=== PATIENT | male | born 1960 | race Two or more races ===

== ENCOUNTER 2020-08-03 07:37 | Inpatient (IN) | payer SELFPAY ==
[~2020-08-03] VITALS: Ht 177.8 cm; Wt 76.2 kg
[2020-08-03] MEDS ORDERED: ETOMIDATE (2MG/ML) 20ML VIAL IV ONE ×2 (07:56→08:00)
[2020-08-03] MEDS ORDERED: SUCCINYLCHOLINE CHLORIDE 20 MG/ML 10ML VIAL IV ONE ×2 (07:56→08:00)
[2020-08-03] MEDS ORDERED: ASCORBIC ACID 500 MG TAB PO ONE (08:00)
[2020-08-03] MEDS ORDERED: methylPREDNISolone SOD SUCC 125 MG/2 ML VL IV ONE (08:00)
[2020-08-03] MEDS ORDERED: AZITHROMYCIN 500MG/ 250ML 250 ML IV ONE (08:00)
[2020-08-03] MEDS ORDERED: ENOXAPARIN SOD 100 MG/1 ML SYRINGE SC ONE (08:00)
[2020-08-03] MEDS: MIDAZOLAM DRIP 50 mg/50mL 50 ML IV SCH ×3 (08:00→16:57)
[2020-08-03] MEDS ORDERED: ZINC SULFATE 220mg CAP or TAB PO ONE ×2 (08:00→11:30)
[2020-08-03] MEDS ORDERED: fentaNYL Drip 2500mCg/250mlNS 250 ML IV SCH ×2 (08:00→09:30)
--- NOTE | 2020-08-03 08:00 | NUR ---
Respiratory note: PT WAS PLACED ON BIPAP MACHINE BUT DETERIORATED QUICKLY. PT WAS ON BIPAP MACHINE IPAP 20 EPAP 10 100% FOR ONLY 5 MINUTES THEN PATIENT WAS INTUBATED.
[2020-08-03] MEDS ORDERED: REMDESIVIR PER PHARMACY IV SCH (08:15)
[2020-08-03] MEDS ORDERED: PROPOFOL 100 ML IV ONE (08:21)
[2020-08-03] MEDS ORDERED: PROPOFOL 100 ML IV SCH (08:30)
[2020-08-03 08:33] LABS: Hematocrit 43.9 % (41.0-53.0); Hemoglobin 14.6 g/dL (13.5-17.5); Mean Corpuscular Hemoglobin 28.8 pg (28.0-32.0); Mean Corpuscular Hgb Conc. 33.3 g/dL (32.0-36.0); Mean Corpuscular Volume 86.4 fL (80.0-100.0); Platelet Count (auto) 224 10^3/uL (140-450); Red Blood Cells 5.08 10^6/uL (4.5-5.90); White Blood Cell 23.9 10^3/uL (4.4-10.8)
[2020-08-03 08:40] LABS: Basophils % (manual) 0 (0.0-2.0); Blast Cells 0; Eosinophils % (manual) 0 (0-7); Promyelocytes % 0; Reactive Lymphocytes 0
[2020-08-03 08:57] LABS: Lactic Acid w/Reflex 2.3 mmol/L (0.4-2.0)
[2020-08-03 08:58] LABS: Alanine Aminotransferase 77 U/L (16-61); Albumin 2.3 g/dL (3.4-5.0); Anion Gap 8 (5-15); Aspartate Aminotransferase 71 U/L (15-37); BUN/Creatinine Ratio 16.1; Blood Urea Nitrogen 14 mg/dL (7-18); Calcium 8.2 mg/dL (8.5-10.1); Carbon Dioxide 22 mmol/L (21-32); Chloride 103 mmol/L (98-107); GFR African American 116 mL/min; GFR Non-African American 96 mL/min; Glucose 108 mg/dL (74-106); Potassium 4.9 mmol/L (3.5-5.1); Sodium 133 mmol/L (136-145)
[2020-08-03 09:11] LABS: Alkaline Phosphatase 181 U/L (45-117); Bilirubin, Total 1.3 mg/dL (0.2-1.0); Total Protein 7.8 g/dL (6.4-8.2)
[2020-08-03 09:14] LABS: CRP High Sensitivity > 19 mg/dL (< 0.3)
[2020-08-03] MEDS ORDERED: NOREPINEPHRINE 8 MG/250ML KIT 250 ML IV ONE (10:09)
[2020-08-03] MEDS: NOREPINEPHRINE 8 MG/250ML KIT 250 ML IV SCH (10:15)
[2020-08-03] MEDS: PROPOFOL 100 ML IV SCH ×3 (10:54→20:42)
[2020-08-03] MEDS ORDERED: MORPHINE SULF INJ 2 MG/ML SYRINGE 1ML IV PRN (11:15)
[2020-08-03] MEDS ORDERED: NITROGLYCERIN 0.4 MG SL TAB SL PRN (11:15)
[2020-08-03] MEDS ORDERED: AZITHROMYCIN 500MG/D5WorNS 250ml IV ONE (11:30)
[2020-08-03] MEDS ORDERED: ENOXAPARIN SOD 40 MG/0.4 ML SYRINGE SC ONE (11:30)
[2020-08-03] MEDS ORDERED: CHOLECALCIFEROL (VITD3) 2,000 UNIT CAP PO ONE (11:30)
[2020-08-03] MEDS ORDERED: ASCORBIC ACID 1,000 MG TAB PO ONE (11:30)
[2020-08-03] MEDS ORDERED: DexAMETHasone SOD PHOS 10MG/1ML VIAL INJ IV ONE (11:30)
[2020-08-03] MEDS: cefTRIAXone 1GM/50ML D5W 50 ML IV SCH (11:49)
[2020-08-03 12:13] LABS: Band Neutrophils % (manual) 4; Lymphocytes % (manual) 7 (10.0-50.0); Metamyelocytes % 6; Monocytes % (manual) 3 (0-12); Myelocytes % 3
[2020-08-03] MEDS ORDERED: ALBUTEROL SULF HFA 90MCG INH 200DOSE IN SCH (14:00)
--- NOTE | 2020-08-03 14:03 | NUR ---
Respiratory note: ETT ADVANCED 3 CM PER CXR. ETT NOW 25 CM AT THE LIP.
[2020-08-03 18:54] VITALS: BP 104/63
[2020-08-03 19:41] LABS: Urine Bacteria NONE SEEN /hpf (None Seen); Urine Blood 2+ /uL (Negative); Urine Mucus FEW (None Seen); Urine Specific Gravity 1.016 (1.001-1.035); Urine WBC 4 /hpf (0 - 3)
[2020-08-03] MEDS: ENOXAPARIN SOD 80 MG/0.8ML SYRINGE SC SCH (21:56)
[2020-08-03] MEDS ORDERED: BUDESONIDE (INHALATION) 180 MCG IH IN SCH (22:00)
[2020-08-03] MEDS ORDERED: ENOXAPARIN SOD 40 MG/0.4 ML SYRINGE SC SCH (22:00)
[2020-08-03 22:17] VITALS: BP 117/61
[2020-08-03] MEDS: BUDESONIDE (INHALATION) 0.5 MG/2 ML NEB NEB SCH (22:17)
[2020-08-03] MEDS: ALBUTEROL SULF 2.5 MG/0.5ML(0.5%) NEB SOLN NEB SCH (22:17)
[2020-08-04] VITALS (8 sets, daily range): BP systolic 86–117; BP diastolic 47–67
[2020-08-04] MEDS: MIDAZOLAM DRIP 50 mg/50mL 50 ML IV SCH ×5 (01:44→20:59)
[2020-08-04] MEDS: NOREPINEPHRINE 8 MG/250ML KIT 250 ML IV SCH ×2 (02:30→12:10)
[2020-08-04] MEDS: PROPOFOL 100 ML IV SCH ×7 (03:01→23:21)
[2020-08-04 06:06] LABS: Basophils # (auto) 0 10 ^3/uL (0-0.2); Basophils % (auto) 0.1 % (0.0-2.0); Eosinophils # (auto) 0 10 ^3/uL (0-0.8); Hematocrit 40.7 % (41.0-53.0); Hemoglobin 13.7 g/dL (13.5-17.5); Lymphocytes # (auto) 1.2 10 ^3/uL (0.4-5.4); Lymphocytes % (auto) 5.3 % (10.0-50.0); Mean Corpuscular Hemoglobin 28.9 pg (28.0-32.0); Mean Corpuscular Hgb Conc. 33.7 g/dL (32.0-36.0); Mean Corpuscular Volume 85.6 fL (80.0-100.0); Monocytes # (auto) 0.5 10 ^3/uL (0-1.3); Monocytes % (auto) 2.3 % (0.0-12.0); Neutrophils # (auto) 20.8 10 ^3/uL (1.6-8.6); Neutrophils % (auto) 92.3 % (37.0-80.0); Nucleated Red Blood Cells % 0.2 %; Platelet Count (auto) 228 10^3/uL (140-450); Red Blood Cells 4.75 10^6/uL (4.5-5.90); Red Cell Distribution Width 13.7 % (11.8-14.3); White Blood Cell 22.6 10^3/uL (4.4-10.8)
[2020-08-04 06:12] LABS: Albumin 1.7 g/dL (3.4-5.0); Calcium 8.6 mg/dL (8.5-10.1); Potassium 4.2 mmol/L (3.5-5.1)
[2020-08-04 06:16] LABS: BUN/Creatinine Ratio 25.6; Bilirubin, Total 0.7 mg/dL (0.2-1.0); Total Protein 6.8 g/dL (6.4-8.2)
[2020-08-04] MEDS: BUDESONIDE (INHALATION) 0.5 MG/2 ML NEB NEB SCH ×2 (06:40→18:56)
[2020-08-04] MEDS: ALBUTEROL SULF 2.5 MG/0.5ML(0.5%) NEB SOLN NEB SCH ×3 (06:40→18:56)
[2020-08-04] MEDS: cefTRIAXone 1GM/50ML D5W 50 ML IV SCH (07:59)
[2020-08-04] MEDS: DexAMETHasone SOD PHOS 10MG/1ML VIAL INJ IV SCH (08:00)
[2020-08-04] MEDS: FUROSEMIDE 20 MG/2 ML VIAL IV SCH (08:00)
[2020-08-04] MEDS: ENOXAPARIN SOD 80 MG/0.8ML SYRINGE SC SCH ×2 (08:01→21:00)
[2020-08-04] MEDS: CHOLECALCIFEROL (VITD3) 2,000 UNIT CAP PO SCH (08:01)
[2020-08-04] MEDS: ZINC SULFATE 220mg CAP or TAB PO SCH (08:01)
[2020-08-04] MEDS: ASCORBIC ACID 1,000 MG TAB PO SCH (08:01)
[2020-08-04] MEDS ORDERED: AZITHROMYCIN 500MG/ 250ML 250 ML IV SCH (10:00)
[2020-08-04] MEDS ORDERED: AZITHROMYCIN 500MG/D5WorNS 250ml IV SCH (10:00)
[2020-08-04] MEDS ORDERED: AZITHROMYCIN 500MG 500 MG in SODIUM CHL 0.9% 250 ML IV SCH (10:00)
[2020-08-04] MEDS ORDERED: AZITHROMYCIN 500MG/ 250ML 250 ML IV ONE (10:05)
[2020-08-04] MEDS ORDERED: REMDESIVIR 200 MG in NS 210ml LOADING DOSE ADULT IV ONE (17:00)
[2020-08-04] MEDS: ACETAMINOPHEN 500 MG TAB PO PRN (21:56)
[2020-08-05] MEDS: NOREPINEPHRINE 8 MG/250ML KIT 250 ML IV SCH ×2 (01:30→12:57)
[2020-08-05 02:36] VITALS: BP 121/61
[2020-08-05] MEDS: MIDAZOLAM DRIP 50 mg/50mL 50 ML IV SCH ×5 (02:41→21:59)
[2020-08-05] MEDS: PROPOFOL 100 ML IV SCH ×5 (03:25→23:45)
[2020-08-05 05:55] VITALS: BP 105/51
[2020-08-05] MEDS: ALBUTEROL SULF 2.5 MG/0.5ML(0.5%) NEB SOLN NEB SCH ×3 (06:00→22:13)
[2020-08-05 07:43] LABS: Hematocrit 38.2 % (41.0-53.0); Hemoglobin 12.4 g/dL (13.5-17.5); Mean Corpuscular Hemoglobin 27.7 pg (28.0-32.0); Mean Corpuscular Hgb Conc. 32.5 g/dL (32.0-36.0); Mean Corpuscular Volume 85.3 fL (80.0-100.0); Platelet Count (auto) 233 10^3/uL (140-450); Red Blood Cells 4.48 10^6/uL (4.5-5.90); Red Cell Distribution Width 13.5 % (11.8-14.3); White Blood Cell 19.4 10^3/uL (4.4-10.8)
[2020-08-05 07:58] LABS: Band Neutrophils % (manual) 0; Basophils % (manual) 0 (0.0-2.0); Blast Cells 0; Eosinophils % (manual) 0 (0-7); Metamyelocytes % 0; Myelocytes % 0; Promyelocytes % 0; Reactive Lymphocytes 0
[2020-08-05 08:02] LABS: BUN/Creatinine Ratio 33.3; Potassium 4.1 mmol/L (3.5-5.1)
[2020-08-05] MEDS: cefTRIAXone 1GM/50ML D5W 50 ML IV SCH (09:00)
[2020-08-05 09:15] LABS: Lymphocytes % (manual) 3 (10.0-50.0); Monocytes % (manual) 1 (0-12)
[2020-08-05] MEDS: DexAMETHasone SOD PHOS 10MG/1ML VIAL INJ IV SCH (10:00)
[2020-08-05] MEDS: CHOLECALCIFEROL (VITD3) 2,000 UNIT CAP PO SCH (10:00)
[2020-08-05] MEDS: FUROSEMIDE 20 MG/2 ML VIAL IV SCH (10:00)
[2020-08-05] MEDS: ASCORBIC ACID 1,000 MG TAB PO SCH (10:00)
[2020-08-05] MEDS: AZITHROMYCIN 500MG/ 250ML 250 ML IV SCH (10:00)
[2020-08-05] MEDS: ENOXAPARIN SOD 80 MG/0.8ML SYRINGE SC SCH ×2 (10:00→22:59)
[2020-08-05] MEDS: BUDESONIDE (INHALATION) 0.5 MG/2 ML NEB NEB SCH ×2 (10:00→22:13)
[2020-08-05 10:23] VITALS: BP 97/64
[2020-08-05] MEDS: ZINC SULFATE 220mg CAP or TAB PO SCH (10:35)
--- NOTE | 2020-08-05 12:11 | NUR ---
Nutrition Assessment Notes Please refer to link for full assessment notes. Est Energy needs: 2914-7333 kcals (20-23 kcal/kgBW) Est Protein needs: 66-82 gms/day (0.8-1.0 gm/kgBW) Will continue to monitor and reassess prn. Addendum: 08/05/20 at [address] Amended: Links added.
[2020-08-05] MEDS: fentaNYL Drip 2500mCg/250mlNS 250 ML IV SCH (12:45)
[2020-08-05 14:23] VITALS: BP 120/65
[2020-08-05] MEDS: REMDESIVIR 100 MG in SODIUM CHL 0.9% 250 ML IV SCH (17:25)
[2020-08-05 18:42] VITALS: BP 114/67
[2020-08-05 22:13] VITALS: BP 98/54
[2020-08-06] VITALS (7 sets, daily range): BP systolic 81–110; BP diastolic 43–55
[2020-08-06] MEDS: MIDAZOLAM DRIP 50 mg/50mL 50 ML IV SCH ×5 (03:01→21:00)
[2020-08-06] MEDS: NOREPINEPHRINE 8 MG/250ML KIT 250 ML IV SCH ×2 (04:10→14:48)
[2020-08-06] MEDS: PROPOFOL 100 ML IV SCH ×4 (05:00→16:01)
[2020-08-06] MEDS: ALBUTEROL SULF 2.5 MG/0.5ML(0.5%) NEB SOLN NEB SCH ×3 (06:15→22:05)
[2020-08-06] MEDS: BUDESONIDE (INHALATION) 0.5 MG/2 ML NEB NEB SCH ×2 (06:15→22:05)
[2020-08-06 06:40] LABS: Basophils # (auto) 0 10 ^3/uL (0-0.2); Eosinophils # (auto) 0 10 ^3/uL (0-0.8); Hematocrit 41.9 % (41.0-53.0); Hemoglobin 13.7 g/dL (13.5-17.5); Lymphocytes # (auto) 0.4 10 ^3/uL (0.4-5.4); Lymphocytes % (auto) 2.7 % (10.0-50.0); Mean Corpuscular Hemoglobin 28.5 pg (28.0-32.0); Mean Corpuscular Hgb Conc. 32.7 g/dL (32.0-36.0); Monocytes # (auto) 0.5 10 ^3/uL (0-1.3); Monocytes % (auto) 3.7 % (0.0-12.0); Neutrophils # (auto) 12.4 10 ^3/uL (1.6-8.6); Neutrophils % (auto) 93.6 % (37.0-80.0); Platelet Count (auto) 230 10^3/uL (140-450); Red Blood Cells 4.81 10^6/uL (4.5-5.90); Red Cell Distribution Width 14.1 % (11.8-14.3); White Blood Cell 13.2 10^3/uL (4.4-10.8)
[2020-08-06 07:04] LABS: BUN/Creatinine Ratio 35.1; Calcium 8.6 mg/dL (8.5-10.1)
--- NOTE | 2020-08-06 07:15 | NUR ---
Respiratory note: VENT CHANGES PER . PLACED PT ON AC ON PREVIOUS SETTINGS, ABG TO FOLLOW.
[2020-08-06 07:16] LABS: Potassium 5.8 mmol/L (3.5-5.1)
[2020-08-06 08:25] LABS: Calcium 8.4 mg/dL (8.5-10.1)
[2020-08-06 08:29] LABS: BUN/Creatinine Ratio 45.2; Bilirubin, Total 0.5 mg/dL (0.2-1.0); Total Protein 6.7 g/dL (6.4-8.2)
[2020-08-06 08:48] LABS: Potassium 5.6 mmol/L (3.5-5.1)
[2020-08-06] MEDS: cefTRIAXone 1GM/50ML D5W 50 ML IV SCH (09:00)
[2020-08-06] MEDS ORDERED: SODIUM ZIRCONIUM CYCL 10 GM PAK GT ONE (09:15)
[2020-08-06] MEDS ORDERED: SODIUM BICARBONATE 8.4% INJ 50ML SYRINGE IV ONE (09:15)
[2020-08-06] MEDS ORDERED: InsuLIN REG 1unit/0.01ml Soln (100units/ml) IV ONE (09:15)
[2020-08-06] MEDS ORDERED: FUROSEMIDE 20 MG/2 ML VIAL IV ONE (09:15)
[2020-08-06] MEDS ORDERED: DEXTROSE (50%) 50ML SYRG IV ONE (09:15)
[2020-08-06] MEDS: FUROSEMIDE 20 MG/2 ML VIAL IV SCH (10:00)
[2020-08-06] MEDS: CHOLECALCIFEROL (VITD3) 2,000 UNIT CAP PO SCH (10:00)
[2020-08-06] MEDS: ENOXAPARIN SOD 80 MG/0.8ML SYRINGE SC SCH ×2 (10:00→22:00)
[2020-08-06] MEDS: ASCORBIC ACID 1,000 MG TAB PO SCH (10:00)
[2020-08-06] MEDS: ZINC SULFATE 220mg CAP or TAB PO SCH (10:00)
[2020-08-06] MEDS: AZITHROMYCIN 500MG/ 250ML 250 ML IV SCH (10:00)
[2020-08-06] MEDS: DexAMETHasone SOD PHOS 10MG/1ML VIAL INJ IV SCH (10:00)
--- NOTE | 2020-08-06 10:15 | NUR ---
Respiratory note: RR CHANGED FROM [address] HARDIN.
[2020-08-06] MEDS: fentaNYL Drip 2500mCg/250mlNS 250 ML IV SCH (12:45)
[2020-08-06 13:22] LABS: BUN/Creatinine Ratio 33.3; Calcium 7.9 mg/dL (8.5-10.1); Potassium 4.1 mmol/L (3.5-5.1)
[2020-08-06] MEDS: REMDESIVIR 100 MG in SODIUM CHL 0.9% 250 ML IV SCH (17:29)
[2020-08-07] VITALS (29 sets, daily range): BP systolic 84–149; BP diastolic 40–75
[2020-08-07] MEDS: PROPOFOL 100 ML IV SCH ×6 (00:15→23:30)
[2020-08-07] MEDS: MIDAZOLAM DRIP 50 mg/50mL 50 ML IV SCH ×5 (01:00→22:32)
[2020-08-07] MEDS: BUDESONIDE (INHALATION) 0.5 MG/2 ML NEB NEB SCH ×2 (06:00→22:16)
[2020-08-07] MEDS: ALBUTEROL SULF 2.5 MG/0.5ML(0.5%) NEB SOLN NEB SCH ×3 (06:00→22:16)
[2020-08-07 06:02] LABS: Basophils # (auto) 0 10 ^3/uL (0-0.2); Basophils % (auto) 0.1 % (0.0-2.0); Eosinophils # (auto) 0 10 ^3/uL (0-0.8); Eosinophils % (auto) 0.1 % (0.0-7.0); Hematocrit 39.3 % (41.0-53.0); Hemoglobin 13.4 g/dL (13.5-17.5); Lymphocytes # (auto) 0.8 10 ^3/uL (0.4-5.4); Lymphocytes % (auto) 5.6 % (10.0-50.0); Mean Corpuscular Hemoglobin 28.8 pg (28.0-32.0); Mean Corpuscular Hgb Conc. 34.1 g/dL (32.0-36.0); Mean Corpuscular Volume 84.6 fL (80.0-100.0); Monocytes # (auto) 0.7 10 ^3/uL (0-1.3); Monocytes % (auto) 5.1 % (0.0-12.0); Neutrophils % (auto) 89.1 % (37.0-80.0); Nucleated Red Blood Cells % 0.1 %; Platelet Count (auto) 228 10^3/uL (140-450); Red Blood Cells 4.64 10^6/uL (4.5-5.90); White Blood Cell 13.5 10^3/uL (4.4-10.8)
[2020-08-07] MEDS: NOREPINEPHRINE 8 MG/250ML KIT 250 ML IV SCH ×3 (06:02→16:33)
[2020-08-07 06:15] LABS: Potassium 4.1 mmol/L (3.5-5.1)
[2020-08-07 06:55] LABS: Albumin 2.1 g/dL (3.4-5.0); BUN/Creatinine Ratio 42.9; Bilirubin, Total 0.8 mg/dL (0.2-1.0); Calcium 8.2 mg/dL (8.5-10.1); Total Protein 6.5 g/dL (6.4-8.2)
--- NOTE | 2020-08-07 07:15 | NUR ---
Respiratory note: VENT CHANGE PER POST AM ABG. RR FROM 18 TO 20. REPEAT ABG TO FOLLOW.
[2020-08-07] MEDS: ACETAMINOPHEN 500 MG TAB PO PRN (07:18)
[2020-08-07] MEDS ORDERED: ACETAMINOPHEN 650 MG RECT SUPP PR ONE (08:00)
[2020-08-07] MEDS: AZITHROMYCIN 500MG/ 250ML 250 ML IV SCH (09:56)
[2020-08-07] MEDS: DexAMETHasone SOD PHOS 10MG/1ML VIAL INJ IV SCH (09:56)
[2020-08-07] MEDS: cefTRIAXone 1GM/50ML D5W 50 ML IV SCH (09:56)
[2020-08-07] MEDS: ENOXAPARIN SOD 80 MG/0.8ML SYRINGE SC SCH ×2 (09:56→22:05)
[2020-08-07] MEDS: ASCORBIC ACID 1,000 MG TAB PO SCH (09:56)
[2020-08-07] MEDS: CHOLECALCIFEROL (VITD3) 2,000 UNIT CAP PO SCH (09:56)
[2020-08-07] MEDS: fentaNYL Drip 2500mCg/250mlNS 250 ML IV SCH ×2 (09:56→16:33)
[2020-08-07] MEDS: FUROSEMIDE 20 MG/2 ML VIAL IV SCH (09:56)
[2020-08-07] MEDS: ZINC SULFATE 220mg CAP or TAB PO SCH (09:56)
--- NOTE | 2020-08-07 10:32 | NUR ---
Nutrition Followup Note Wt 82.2kg Pt is covid positive and pt is intubated and sedated in the ER. Propofol is running at 12.336 ml/hr providing 326 kcal from lipids. Pt is NPO with no alternate nutrition ordered for pt. Est Energy needs: 1662-5163 kcals (20-23 kcal/kgBW) Est Protein needs: 66-82 gms/day (0.8-1.0 gm/kgBW) Will continue to monitor and reassess prn. Labs: BUN 27H, Creat 0.63L, GLUC 111H, Alb 2.1L, Ca 8.2L BM: Pt with no BM noted per Rn note Skin: Pt with no BS noted per day care worker note. PES: 1) Increased nutrient needs r/t pt with no PO intake aeb pt in intubated, NPO 2) Altered nutrition related lab values r/t current medical condition aeb eleb RFT, hyperglycemia, hypocalcemia, hypoalbuminemia Comments Will continue to monitor PO status, skin status, pertinent labs and weight trends. Will f/u in 2-3 days 1) Continue to closely monitor pt NPO status 2) If pt is to remain NPO for the next 48 hours, consider supplemental nutrition support. If GI is accessible, consider Jevity 1.2 @ 70 ml/hr goal rate 3) Gradually advance pt to Regular diet when medically feasible, as tolerated and per MD approval 4) If albumin continues trending down with improved RFT, consider Prostat 1 pkt BID 5) Continue current plan of care Expected Outcomes/Goals: Pt to receive nutrition support in the next 48 hours Pt diet to advance Pt labs to improve
--- NOTE | 2020-08-07 13:50 | NUR ---
Respiratory note: TITRATED FIO2 TO 75%
--- NOTE | 2020-08-07 15:33 | NUR ---
REPORT REPORT RECEIVED FROM COMPUTER MECHANICMAR. PT INTUBATED AND SEDATED. ALSO COVID +.
--- NOTE | 2020-08-07 16:04 | NUR ---
PT TEACHING PT UNABLE TO BENEFIT FROM PT TEACHING AT THIS TIME DUE TO HIS CONDITION. Addendum: 08/07/20 at 2025 by Laine Spring RN Amended: Links added.
--- NOTE | 2020-08-07 16:04 | NUR ---
Admit to ICU from ER on vent TUAN BONILLA admitted to ICU via gurney on monitoring engineer, intubated and being bagged by Respiratory Therapist. Patient transferred to bed, connected to mechanical ventilator by therapist, CRISTINA at bedside. Patient connected to ICU monitoring, weighed by agustín, oriented to Laine Spring, primary RN, unit, ventilator and sedation. NOTE: PT SEDATED AND INTUBATED WITH VENT SETTINGS OF: 8 FR ETT/24 AT THE LIP, PC SETTING, RATE 20, PRESSURE 24, PEEPOF 8 , 75% FIO2. LUNGS CLEAR AND DIMINISHED THROUGHOUT. BP OF 109/59 ON LEVOPHED AT 1 MCG. PALPABLE PULSES TO ALL EXTREMITIES. NO EDEMA NOTED. ABD SOFT WITH FEW BOWEL SOUNDS NOTED. LEGGETT CATHETER DRAINING CLEAR CLEAR YELLOW URINE. SKIN INTACT. SMALL SCAR NOTED TO LEFT CHEST AND HYPOPIGMENTATION NOTED TO BLE AND FEET AND HIS PENIS. PT WITH MIDLINE TO BUE AND BILATERAL AC SALINE LOCKS. CONTINUE TO MONITOR.
--- NOTE | 2020-08-07 16:05 | NUR ---
Respiratory note: TRANSPORTED PATIENT TO ROOM 111 ON TRANSPORT VENT WITHOUT ANY INCIDENT. PLACED PATIENT BACK ON VENT#6 ON PREVIOUS SETTINGS.
--- NOTE | 2020-08-07 16:16 | NUR ---
WOUND CARE NOTE: Wound care in to see patient for skin assessment due to low Kelvin score of 12 and intubation status,putting patient to high risk for skin breakdown. Patient is 60 years old male with admitting diagnosis of Acute Hypoxic Resp Failure. Patient is resting in ICU low air loss bed in . 111. Patient is intubated, sedated and mechanically ventilated. Patient appears to be in no pain using Carlos Alves Faces Pain Scale. Skin assessment done with the assistance of patient's nurse, VIET Jang. No wound noted other than patches of hypopigmented pink skin to bilateral foot, ankle and distal penile shaft. No pressure injury noted. Applied preventative Opti foam sacral dressing to patient's upper sacrum. RECOMMENDATION: Nursing to continue with BID/PRN cleaning and application of Barrier cream to sacral buttocks as preventative, frequent turning and repositioning schedule as condition permits, redistribute pressure points with pillows, elevate heels on pillows, continue monitoring by wound care while patient is intubated and Kelvin score is <18. Addendum: 08/07/20 at 1628 by Renetta Burton RN Amended: Links added.
[2020-08-07] MEDS: REMDESIVIR 100 MG in SODIUM CHL 0.9% 250 ML IV SCH (17:57)
--- NOTE | 2020-08-07 18:15 | NUR ---
HEART RATE DOWN TO 39 BRIEFLY AND THEN STAYING IN THE UPPER 40'S. DECREASED DIPRIVAN BY 5 MCG TO 20 MCG WITH HEART RTE THEN UP INTO THE 60'S AFTER ABOUT 5 MINUTES. CONTINUE TO MONITOR.
--- NOTE | 2020-08-07 18:30 | NUR ---
Respiratory note: RECEIVED PT ON VENT V6. VENT CHECK DONE FROM PTS ROOM DOOR DUE TO COVID PRECAUTIONS. VENT CONNECTED TO RED OUTLET AND O2 SOURCE ALARMS ARE SET AND AUDIBLE AMBU BAG AND MASK W/ PEEP VALVE AT BEDSIDE. PTS CURRENT TEMP READS 97.3F. NO VENT CHANGES MADE WILL CONTINUE TO MONITOR.
--- NOTE | 2020-08-07 19:00 | NUR ---
Report received from VIET Jang. Patient intubated with ETT 8.0 at 24 CM L/L to vent. Vent settings: AC 20 Pressure Control 24 FiO2 75% PEEP 8. IVF: Propofol drip at 20 mcg/kg/min; Versed drip 8 mg/hr; Fentanyl drip 100 mcg/hr; and, Levophed drip 1 mcg/min. Will continue with POC; and, will continue to monitor VS, focus on BP, RASS -3, and clinical status.
--- NOTE | 2020-08-07 20:30 | NUR ---
Propofol drip changed to new bottle and infusion rate resumed at 20 mcg/kg/min.
--- NOTE | 2020-08-07 22:06 | NUR ---
Patient medicated with Lovenox 80 mg SQ.
--- NOTE | 2020-08-07 22:16 | NUR ---
Respiratory note: AT BEDSIDE BEDSIDE IN FULL PPE DUE TO COVID PRECAUTIONS. AT BEDSIDE FOR ROUTINE VENT CHECK. BS ARE ARE COURSE ATTEMPTED TO SXD VIA ETT, UNABLE TO PASS CATHETER IN-LINE, UNABLE TO PLACE BITE BLOCK DUE TO BENDING AND NOT ENOUGH CLEARANCE TO PASS SIZE 8 OPA. HOLISTER CHANGED OUT AT THIS TIME TO A HOLISTER WITH INTEGRATED BITE BLOCK. RN HERB AWARE OF CHANGE. PTS CURRENT TEMP READS 97.7F. NO CHANGES MADE WILL CONTINUE TO MONITOR.
--- NOTE | 2020-08-07 22:30 | NUR ---
Versed drip changed to new bag and resumed infusion rate at 8 mg/hr.
--- NOTE | 2020-08-07 22:39 | NUR ---
Patient biting on ETT. RT attempted to place bite block and patient resisting bite block insertion. Versed drip increase to 12 mg/hr.
--- NOTE | 2020-08-07 23:45 | NUR ---
BP 85/40 A-Line BP 92/56. Levophed drip increase to 4 mcg/min.
[2020-08-08] VITALS (102 sets, daily range): BP systolic 82–140; BP diastolic 42–92
--- NOTE | 2020-08-08 02:23 | NUR ---
Respiratory note: VENT CHECK DONE FROM PTS ROOM DOOR DUE TO COVID PRECAUTIONS. AT BEDSIDE FOR ROUTINE VENT CHECK, PTS CURRENT TEMP READS 98.1F. NO CHANGES MADE WILL CONTINUE TO MONITOR.
--- NOTE | 2020-08-08 02:45 | NUR ---
RT decrease FiO2 to 65%.
--- NOTE | 2020-08-08 02:53 | NUR ---
FIO2 TITRATED TO 65% VIA VENTILATOR. PT TOLERATING CHANGE WELL. RN HERB COMMUNICATED ON O2 CHANGE.
--- NOTE | 2020-08-08 03:25 | NUR ---
Versed drip changed to new bag and infusion resumed at 12 mg/hr.
--- NOTE | 2020-08-08 04:00 | NUR ---
Regulator Assembler on unit. Credit Reporter collected am labs from [facility]. Specimens given to Regulator Assembler and specimens sent to lab.
[2020-08-08 04:33] LABS: Basophils # (auto) 0.1 10 ^3/uL (0-0.2); Basophils % (auto) 0.5 % (0.0-2.0); Eosinophils # (auto) 0 10 ^3/uL (0-0.8); Eosinophils % (auto) 0.1 % (0.0-7.0); Hematocrit 37.3 % (41.0-53.0); Hemoglobin 12.5 g/dL (13.5-17.5); Lymphocytes # (auto) 0.9 10 ^3/uL (0.4-5.4); Lymphocytes % (auto) 5.1 % (10.0-50.0); Mean Corpuscular Hgb Conc. 33.4 g/dL (32.0-36.0); Mean Corpuscular Volume 83.7 fL (80.0-100.0); Monocytes # (auto) 0.8 10 ^3/uL (0-1.3); Monocytes % (auto) 4.3 % (0.0-12.0); Neutrophils # (auto) 16.6 10 ^3/uL (1.6-8.6); Platelet Count (auto) 261 10^3/uL (140-450); Red Blood Cells 4.46 10^6/uL (4.5-5.90); Red Cell Distribution Width 13.8 % (11.8-14.3); White Blood Cell 18.4 10^3/uL (4.4-10.8)
[2020-08-08 04:45] LABS: Albumin 1.9 g/dL (3.4-5.0); Calcium 7.7 mg/dL (8.5-10.1); Potassium 3.7 mmol/L (3.5-5.1)
[2020-08-08 04:50] LABS: BUN/Creatinine Ratio 51.8
[2020-08-08] MEDS: PROPOFOL 100 ML IV SCH ×2 (06:05→22:00)
--- NOTE | 2020-08-08 06:05 | NUR ---
Propofol drip changed to new bottle and infusion resumed at 20mcg/kg/min.
[2020-08-08] MEDS: ALBUTEROL SULF 2.5 MG/0.5ML(0.5%) NEB SOLN NEB SCH ×3 (06:22→22:16)
[2020-08-08] MEDS: BUDESONIDE (INHALATION) 0.5 MG/2 ML NEB NEB SCH ×2 (06:22→22:16)
--- NOTE | 2020-08-08 06:22 | NUR ---
Respiratory note: RECEIVED PT FROM KNOTTING MACHINE OPERATOR PORTABLE ON VENT V-6 PLUGGED INTO RED OUTLET. ALL VENT ALARMS ARE AUDIBLE, AND FUNCTIONING. AMBU BAG/MASK WITH PEEP VALVE IS AT BEDSIDE CONNECTED TO AN O2 SOURCE. ETT IS 8.0 @ THE 26 LIP LINE SECURED WITH A ISAURA. MOVED ETT FROM LEFT, TO RIGHT WITH NO ORAL/SKIN BREAK DOWN NOTED. BS ARE SLIGHTLY CLEAR/DIMINISHED BILATERALLY. SX FOR A SCANT AMOUNT OF THICK, PINK TINGED SECRETIONS. GAG REFLEX NOTED. MEDNEB TX GIVEN INLINE, WITH NO ADVERSE EFFECTS NOTED. PT SKIN IS WARM/DRY TO THE TOUCH. PT IS UNRESPONSIVE TO VERBAL STIMULI. NO NEW VENT CHANGES ORDERED AT THIS TIME. WILL CONTINUE TO MONITOR PT. CHARTING COMPLETE FROM OUTSIDE OF PT ROOM PER COVID-19 PRECAUTIONS/PROTOCOL.
[2020-08-08] MEDS: fentaNYL Drip 2500mCg/250mlNS 250 ML IV SCH (08:00)
[2020-08-08] MEDS: NOREPINEPHRINE 8 MG/250ML KIT 250 ML IV SCH (08:00)
[2020-08-08] MEDS: cefTRIAXone 1GM/50ML D5W 50 ML IV SCH (09:00)
[2020-08-08] MEDS: ENOXAPARIN SOD 80 MG/0.8ML SYRINGE SC SCH ×2 (10:00→22:37)
[2020-08-08] MEDS: FUROSEMIDE 20 MG/2 ML VIAL IV SCH (10:00)
[2020-08-08] MEDS: ZINC SULFATE 220mg CAP or TAB PO SCH (10:00)
[2020-08-08] MEDS: AZITHROMYCIN 500MG/ 250ML 250 ML IV SCH (10:00)
[2020-08-08] MEDS: CHOLECALCIFEROL (VITD3) 2,000 UNIT CAP PO SCH (10:00)
[2020-08-08] MEDS: DexAMETHasone SOD PHOS 10MG/1ML VIAL INJ IV SCH (10:00)
[2020-08-08] MEDS: ASCORBIC ACID 1,000 MG TAB PO SCH (10:00)
--- NOTE | 2020-08-08 12:05 | NUR ---
Respiratory note: PT FIO2 TITRATED TO 55%. PT TOLERATED CHANGE WELL. RN AWARE. NO OTHER VENT CHANGES ORDERED/MADE AT THIS TIME. WILL CONTINUE TO MONITOR PT. CHARTING COMPLETE FROM OUTSIDE OF PT ROOM PER COVID-19 PRECAUTIONS/PROTOCOL/
[2020-08-08] MEDS: REMDESIVIR 100 MG in SODIUM CHL 0.9% 250 ML IV SCH (17:12)
[2020-08-08] MEDS: MIDAZOLAM DRIP 50 mg/50mL 50 ML IV SCH (20:00)
[2020-08-09] VITALS (99 sets, daily range): BP systolic 85–208; BP diastolic 47–85
[2020-08-09] MEDS: ALBUTEROL SULF 2.5 MG/0.5ML(0.5%) NEB SOLN NEB SCH ×4 (01:41→22:33)
[2020-08-09] MEDS ORDERED: ALBUTEROL SULF 2.5 MG/0.5ML(0.5%) NEB SOLN NEB PRN (01:45)
[2020-08-09] MEDS: MIDAZOLAM DRIP 50 mg/50mL 50 ML IV SCH ×3 (03:33→15:36)
[2020-08-09 04:55] LABS: Basophils # (auto) 0.1 10 ^3/uL (0-0.2); Basophils % (auto) 0.3 % (0.0-2.0); Eosinophils # (auto) 0 10 ^3/uL (0-0.8); Eosinophils % (auto) 0.1 % (0.0-7.0); Hematocrit 38.4 % (41.0-53.0); Hemoglobin 12.9 g/dL (13.5-17.5); Lymphocytes % (auto) 4.4 % (10.0-50.0); Mean Corpuscular Hemoglobin 28.4 pg (28.0-32.0); Mean Corpuscular Hgb Conc. 33.7 g/dL (32.0-36.0); Mean Corpuscular Volume 84.4 fL (80.0-100.0); Monocytes # (auto) 0.9 10 ^3/uL (0-1.3); Monocytes % (auto) 3.8 % (0.0-12.0); Neutrophils # (auto) 20.3 10 ^3/uL (1.6-8.6); Neutrophils % (auto) 91.4 % (37.0-80.0); Nucleated Red Blood Cells % 0.1 %; Platelet Count (auto) 269 10^3/uL (140-450); Red Blood Cells 4.55 10^6/uL (4.5-5.90); Red Cell Distribution Width 13.6 % (11.8-14.3); White Blood Cell 22.3 10^3/uL (4.4-10.8)
[2020-08-09] MEDS: PROPOFOL 100 ML IV SCH ×2 (05:01→06:35)
[2020-08-09 05:13] LABS: BUN/Creatinine Ratio 58.5; Calcium 7.9 mg/dL (8.5-10.1); Potassium 4.1 mmol/L (3.5-5.1)
[2020-08-09] MEDS: BUDESONIDE (INHALATION) 0.5 MG/2 ML NEB NEB SCH ×2 (06:35→22:33)
[2020-08-09] MEDS: NOREPINEPHRINE 8 MG/250ML KIT 250 ML IV SCH (06:42)
[2020-08-09] MEDS: cefTRIAXone 1GM/50ML D5W 50 ML IV SCH (09:00)
[2020-08-09] MEDS: ASCORBIC ACID 1,000 MG TAB PO SCH (10:00)
[2020-08-09] MEDS: FUROSEMIDE 20 MG/2 ML VIAL IV SCH (10:00)
[2020-08-09] MEDS: AZITHROMYCIN 500MG/ 250ML 250 ML IV SCH (10:00)
[2020-08-09] MEDS: ZINC SULFATE 220mg CAP or TAB PO SCH (10:00)
[2020-08-09] MEDS: DexAMETHasone SOD PHOS 10MG/1ML VIAL INJ IV SCH (10:00)
[2020-08-09] MEDS: fentaNYL Drip 2500mCg/250mlNS 250 ML IV SCH (10:00)
[2020-08-09] MEDS: CHOLECALCIFEROL (VITD3) 2,000 UNIT CAP PO SCH (10:00)
[2020-08-09] MEDS: ENOXAPARIN SOD 80 MG/0.8ML SYRINGE SC SCH ×2 (10:09→21:56)
--- NOTE | 2020-08-09 10:45 | NUR ---
PER DR. MURRAY DECREASED VENT: RR 16 AND FIO2 70%. RN MADE AWARE
--- NOTE | 2020-08-09 15:11 | NUR ---
Nutrition Followup Note Wt 76.5kg Pt is covid positive and pt is intubated and sedated in the ER. Propofol is running at 12.336 ml/hr providing 326 kcal from lipids. Pt continues to be NPO with no alternate nutrition ordered for pt. Consider starting TF when medically feasible or TPN if GI is not accessible Est Energy needs: 6087-3693 kcals (20-23 kcal/kgBW) Est Protein needs: 66-82 gms/day (0.8-1.0 gm/kgBW) Will continue to monitor and reassess prn. Labs: BUN 31H, Creat 0.53L, Alb 1.9L, Na 134L, Ca 7.9L BM: Pt with no BM noted per Rn note Skin: Pt with no BS noted per day care supervisor note. PES: 1) Increased nutrient needs r/t pt with no PO intake aeb pt in intubated, NPO 2) Altered nutrition related lab values r/t current medical condition aeb eleb RFT, hyperglycemia, hypocalcemia, hypoalbuminemia Comments Will continue to monitor PO status, skin status, pertinent labs and weight trends. Will f/u in 2-3 days 1) Continue to closely monitor pt NPO status 2) If pt is to remain NPO for the next 48 hours, consider supplemental nutrition support. If GI is accessible, consider Jevity 1.2 @ 70 ml/hr goal rate 3) Gradually advance pt to Regular diet when medically feasible, as tolerated and per MD approval 4) If albumin continues trending down with improved RFT, consider Prostat 1 pkt BID 5) Continue current plan of care Expected Outcomes/Goals: Pt to receive nutrition support in the next 48 hours Pt diet to advance Pt labs to improve
[2020-08-10] VITALS (99 sets, daily range): BP systolic 97–148; BP diastolic 49–77
[2020-08-10 04:07] LABS: Basophils # (auto) 0 10 ^3/uL (0-0.2); Basophils % (auto) 0.2 % (0.0-2.0); Eosinophils # (auto) 0.1 10 ^3/uL (0-0.8); Eosinophils % (auto) 0.6 % (0.0-7.0); Hematocrit 38.3 % (41.0-53.0); Hemoglobin 12.8 g/dL (13.5-17.5); Lymphocytes # (auto) 0.7 10 ^3/uL (0.4-5.4); Mean Corpuscular Hemoglobin 28.4 pg (28.0-32.0); Mean Corpuscular Hgb Conc. 33.5 g/dL (32.0-36.0); Mean Corpuscular Volume 84.7 fL (80.0-100.0); Monocytes # (auto) 0.6 10 ^3/uL (0-1.3); Monocytes % (auto) 5.1 % (0.0-12.0); Neutrophils # (auto) 10.5 10 ^3/uL (1.6-8.6); Neutrophils % (auto) 88.1 % (37.0-80.0); Platelet Count (auto) 289 10^3/uL (140-450); Red Blood Cells 4.52 10^6/uL (4.5-5.90); Red Cell Distribution Width 13.7 % (11.8-14.3); White Blood Cell 11.9 10^3/uL (4.4-10.8)
[2020-08-10 04:26] LABS: Potassium 3.7 mmol/L (3.5-5.1)
[2020-08-10 04:32] LABS: BUN/Creatinine Ratio 61.2; Calcium 8.1 mg/dL (8.5-10.1)
[2020-08-10] MEDS: ALBUTEROL SULF 2.5 MG/0.5ML(0.5%) NEB SOLN NEB SCH ×3 (06:00→22:54)
[2020-08-10] MEDS: BUDESONIDE (INHALATION) 0.5 MG/2 ML NEB NEB SCH ×2 (07:19→22:54)
--- NOTE | 2020-08-10 08:00 | NUR ---
AM ASSESSMENT DONE REMAINS INTUBATED SEDATED ON , VERSED AT 12 MG/HR, PROPOFOL AT 15 MCG/KG/MIN AND FENTANYL AT 175 MCG/HR. WITH THIS SEDATION PT IS WELL SEDATED AND IS TOLERATING THE VENTILATOR. PT IS + FOR COVID 19 AND ALSO HAS A PNEUMOMEDIASTINUM PER CXR DONE 08/05/2020 , PT HAS QUITE A BIT OF CREPITUS AROUND ANTERIOR CHEST AND AROUND NECK. DR. MURRAY AWARE (PER REPORT RECEIVED FROM GENERAL INTERNIST RN). GOOD COUGH AND GAG REFLUX, PUPILS WITH A SLUGGISH REACTION TO LIGHT.LS WITH RH AND CLEAR UP AFTER SUCTIONING EXCEPT FOR OSITO LOBE, IT PERSIST WITH RHONCHI. SR, NO ECTOPY, PT ON 4 KARINA/MIN OF LEVOPHED FOR BP SUPPORT. SKIN REMAIN INTACT. FC DRAINING CLEAR YELLOW URINE. FC WITH SECUREMENT DEVICE IN PLACE. ORAL CARE RENDERED PER VAP PROTOCOL AND REPOSITIONED FOR COMFORT WITH VIET MILLER'S ASSISTANCE.
[2020-08-10] MEDS: ZINC SULFATE 220mg CAP or TAB PO SCH (09:47)
[2020-08-10] MEDS: ENOXAPARIN SOD 80 MG/0.8ML SYRINGE SC SCH ×2 (09:47→22:26)
[2020-08-10] MEDS: cefTRIAXone 1GM/50ML D5W 50 ML IV SCH (09:47)
[2020-08-10] MEDS: CHOLECALCIFEROL (VITD3) 2,000 UNIT CAP PO SCH (09:48)
[2020-08-10] MEDS: ASCORBIC ACID 1,000 MG TAB PO SCH (09:48)
[2020-08-10] MEDS: FUROSEMIDE 20 MG/2 ML VIAL IV SCH (09:49)
[2020-08-10] MEDS: DexAMETHasone SOD PHOS 10MG/1ML VIAL INJ IV SCH (09:50)
[2020-08-10] MEDS: PROPOFOL 100 ML IV SCH ×2 (09:52→17:40)
[2020-08-10] MEDS: AZITHROMYCIN 500MG/ 250ML 250 ML IV SCH (11:04)
--- NOTE | 2020-08-10 11:45 | NUR ---
DR. LEXY ALBA ON PT. UPDATED HER ON PT'S CONDITION. NEW ORDERS RECEIVED HOWEVER SHE HAD ALREADY GIVEN THOSE ORDERS TO RT WELCH TO IMPLEMENT. THOSE ORDERS WERE FOR VENTILATOR CHANGES AND FOLLOW UP, ABG.
[2020-08-10] MEDS ORDERED: Jevity 1.2 Cal/Fiber 1 Liter GT SCH (14:15)
--- NOTE | 2020-08-10 14:27 | NUR ---
Respiratory note: FINAL VENT CHECK DONE. TITRATED FIO2 TO 50%. PT TOLERATING WELL. PT RECEIVED MN TX INLINE. NO ADVERSE REACTION NOTED. WILL ENDORSE PT'S CARE TO NOC RT.
[2020-08-10] MEDS: MIDAZOLAM DRIP 50 mg/50mL 50 ML IV SCH (18:36)
[2020-08-10] MEDS: fentaNYL Drip 2500mCg/250mlNS 250 ML IV SCH (23:44)
[2020-08-11] VITALS (101 sets, daily range): BP systolic 91–139; BP diastolic 45–78
[2020-08-11 04:44] LABS: Basophils # (auto) 0.1 10 ^3/uL (0-0.2); Basophils % (auto) 0.6 % (0.0-2.0); Eosinophils # (auto) 0.1 10 ^3/uL (0-0.8); Eosinophils % (auto) 0.6 % (0.0-7.0); Hematocrit 37.8 % (41.0-53.0); Hemoglobin 12.7 g/dL (13.5-17.5); Lymphocytes # (auto) 0.7 10 ^3/uL (0.4-5.4); Lymphocytes % (auto) 6.2 % (10.0-50.0); Mean Corpuscular Hemoglobin 28.4 pg (28.0-32.0); Mean Corpuscular Hgb Conc. 33.6 g/dL (32.0-36.0); Mean Corpuscular Volume 84.3 fL (80.0-100.0); Monocytes # (auto) 0.7 10 ^3/uL (0-1.3); Monocytes % (auto) 6.6 % (0.0-12.0); Neutrophils # (auto) 9.4 10 ^3/uL (1.6-8.6); Nucleated Red Blood Cells % 0.2 %; Platelet Count (auto) 268 10^3/uL (140-450); Red Blood Cells 4.49 10^6/uL (4.5-5.90); Red Cell Distribution Width 13.8 % (11.8-14.3); White Blood Cell 10.9 10^3/uL (4.4-10.8)
[2020-08-11 05:03] LABS: Potassium 4.1 mmol/L (3.5-5.1)
[2020-08-11 05:13] LABS: BUN/Creatinine Ratio 49.1; Calcium 8.1 mg/dL (8.5-10.1)
[2020-08-11] MEDS: PROPOFOL 100 ML IV SCH (05:46)
[2020-08-11] MEDS: ALBUTEROL SULF 2.5 MG/0.5ML(0.5%) NEB SOLN NEB SCH ×3 (06:45→21:47)
--- NOTE | 2020-08-11 08:00 | NUR ---
PT ASSESSMENT COMPLETED. REMAINS SEDATED, INTUBATED, SEDATION IS SLOWLY BEING TITRATED OFF. PT ATTEMPTS TO FOLLOW COMMANDS. SR, NO ECTOPY, LS WITH RH IN ALL PULIDO. MINIMAL THICK SECRETIONS SUCTIONED THROUGH ETT. ORAL CARE PROVIDED PER VAP PROTOCOL. SKIN REMAINS INTACT. FC DRAINING CLEAR YELLOW URINE.
[2020-08-11] MEDS: MIDAZOLAM DRIP 50 mg/50mL 50 ML IV SCH ×3 (09:17→16:51)
[2020-08-11] MEDS: cefTRIAXone 1GM/50ML D5W 50 ML IV SCH (09:18)
[2020-08-11] MEDS: AZITHROMYCIN 500MG/ 250ML 250 ML IV SCH (10:00)
[2020-08-11] MEDS: ASCORBIC ACID 1,000 MG TAB PO SCH (10:00)
[2020-08-11] MEDS: BUDESONIDE (INHALATION) 0.5 MG/2 ML NEB NEB SCH ×2 (10:00→21:47)
[2020-08-11] MEDS: ZINC SULFATE 220mg CAP or TAB PO SCH (10:00)
[2020-08-11] MEDS: CHOLECALCIFEROL (VITD3) 2,000 UNIT CAP PO SCH (10:00)
--- NOTE | 2020-08-11 11:32 | NUR ---
Nutrition Followup Note Wt 76.5kg Pt is covid positive and pt is intubated and sedated with propofl @ 7.402 ml./hr provding 195 kcals from fats. Pt continues to be NPO Est Energy needs: 5475-3266 kcals (20-23 kcal/kgBW), Est Protein needs: 66-82 gms/day (0.8-1.0 gm/kgBW). Will continue to monitor and reassess prn. Labs: BUN 26 H CA 8.1 L, ALB 1.9 L, GLU 113 H BM: Pt with no BM noted per Rn note Skin: BS 13 mod risk refer to skin care notes for details PES: 1) Increased nutrient needs r/t pt with no PO intake aeb pt in intubated, NPO 2) Altered nutrition related lab values r/t current medical condition aeb eleb RFT, hyperglycemia, hypocalcemia, hypoalbuminemia Comments Will continue to monitor NPO status, skin status, pertinent labs and weight trends. Will f/u in 2-3 days 1) Consider EN support with Jevity 1.2 @ 70 ml/hr goal rate or PN support if GI is not accessible. 2) Gradually advance diet when medically feasible, as tolerated and per MD approval 4) If albumin continues trending down with improved RFT, consider Prostat 1 pkt BID 5) Continue current plan of care
[2020-08-11] MEDS: DexAMETHasone SOD PHOS 10MG/1ML VIAL INJ IV SCH (11:58)
[2020-08-11] MEDS: FUROSEMIDE 20 MG/2 ML VIAL IV SCH (11:59)
--- NOTE | 2020-08-11 12:00 | NUR ---
DR. PUGH ROUNDING ON PT. ASKING ABOUT PT'S CXR STATUS. NO X-RAY ORDERED FOR TODAY. , RE ORDERED DAILY CXR'S FOR PT, INCLUDING ONE FOR TODAY.
--- NOTE | 2020-08-11 12:30 | NUR ---
WEANED OFF LEVOPHED.
--- NOTE | 2020-08-11 14:00 | NUR ---
PT'S CXR PNEUMO-MEDIASTINUM IMPROVING, NECK SUBCUTANEOUS EMPHYSEMA SEEN ON CXR AND ALSO IMPROVING.
--- NOTE | 2020-08-11 14:00 | NUR ---
HAD TO START LIGHTENING OFF SEDATION D/T SLIGHT HYPOTENSION, SBP 88.
--- NOTE | 2020-08-11 18:00 | NUR ---
NEURO STATUS . PT FOLLOWING COMMANDS ON CURRENT SEDATION STATUS.
[2020-08-11] MEDS: fentaNYL Drip 2500mCg/250mlNS 250 ML IV SCH (18:36)
[2020-08-11] MEDS: ENOXAPARIN SOD 80 MG/0.8ML SYRINGE SC SCH ×2 (18:39→22:02)
--- NOTE | 2020-08-11 19:00 | NUR ---
REPORT GIVEN TO NIGHTSHIFT VIET CORBIN.
[2020-08-12] VITALS (100 sets, daily range): BP systolic 80–165; BP diastolic 44–85
[2020-08-12 04:23] LABS: Basophils # (auto) 0.1 10 ^3/uL (0-0.2); Basophils % (auto) 0.7 % (0.0-2.0); Eosinophils # (auto) 0 10 ^3/uL (0-0.8); Eosinophils % (auto) 0.5 % (0.0-7.0); Hematocrit 38.5 % (41.0-53.0); Hemoglobin 12.9 g/dL (13.5-17.5); Lymphocytes # (auto) 0.8 10 ^3/uL (0.4-5.4); Lymphocytes % (auto) 9.6 % (10.0-50.0); Mean Corpuscular Hemoglobin 28.3 pg (28.0-32.0); Mean Corpuscular Hgb Conc. 33.5 g/dL (32.0-36.0); Mean Corpuscular Volume 84.4 fL (80.0-100.0); Monocytes # (auto) 0.7 10 ^3/uL (0-1.3); Neutrophils # (auto) 6.8 10 ^3/uL (1.6-8.6); Neutrophils % (auto) 81.2 % (37.0-80.0); Nucleated Red Blood Cells % 0.1 %; Platelet Count (auto) 250 10^3/uL (140-450); Red Blood Cells 4.57 10^6/uL (4.5-5.90); Red Cell Distribution Width 13.9 % (11.8-14.3); White Blood Cell 8.4 10^3/uL (4.4-10.8)
[2020-08-12 05:00] LABS: BUN/Creatinine Ratio 50.9; Calcium 8.3 mg/dL (8.5-10.1); Potassium 3.7 mmol/L (3.5-5.1)
[2020-08-12] MEDS: ALBUTEROL SULF 2.5 MG/0.5ML(0.5%) NEB SOLN NEB SCH ×3 (06:00→22:38)
[2020-08-12] MEDS: NOREPINEPHRINE 8 MG/250ML KIT 250 ML IV SCH ×3 (06:50→10:45)
--- NOTE | 2020-08-12 07:45 | NUR ---
OPENING SHIFT NOTE Received report from NOC RN, Leonardo. Assumed care of patient. Patient is currently on Novel Respiratory Isolation for COVID-19. Received patient lying in bed, intubated on ventilator, connected to bedside monitor with alarms in place. Patient is on sedation: Versed 8mg/hr, Fentanyl 100cmg and Propofol 10mg/kg/hr, withdrawals to pain, doesn't respond to voice. No s/s of distress noted. Patient with 7.0 ET 26cm @ lip. Vent settings: AC 14 TV 500 fiO2 40% P8 with O2 sats >95%. Patient with IV access of right upper arm midline, left upper arm midline, right AC #18 and left AC #18. All patent and infusing fluids. Tube feedings of Jevity 1.2 running at 20ml/hr with residuals >30ml via NGT to right nare. Bowel sounds hypoactive x4 quadrants. Taylor draining light kandy urine with some sediment to gravity. Patient sacrum intact, non blanching area noted to right heel. Bilateral heels off loaded with pillows. Patient turning q2hrs/PRN. Bed in lowest position, rails x4 up for safety. See physical assessment for full assessment.
[2020-08-12] MEDS: MIDAZOLAM DRIP 50 mg/50mL 50 ML IV SCH ×3 (08:21→17:30)
[2020-08-12] MEDS: PROPOFOL 100 ML IV SCH ×4 (08:22→18:09)
--- NOTE | 2020-08-12 08:30 | NUR ---
LEVOPHED Restarted patient on levophed at 2mcg/hr for BP 87/51. See IV spreadsheet.
[2020-08-12] MEDS: cefTRIAXone 1GM/50ML D5W 50 ML IV SCH (09:00)
[2020-08-12] MEDS: BUDESONIDE (INHALATION) 0.5 MG/2 ML NEB NEB SCH ×2 (10:00→22:38)
[2020-08-12] MEDS: DexAMETHasone SOD PHOS 10MG/1ML VIAL INJ IV SCH (10:46)
[2020-08-12] MEDS: FUROSEMIDE 20 MG/2 ML VIAL IV SCH (10:47)
[2020-08-12] MEDS: AZITHROMYCIN 500MG/ 250ML 250 ML IV SCH (10:47)
[2020-08-12] MEDS: ZINC SULFATE 220mg CAP or TAB PO SCH (10:47)
[2020-08-12] MEDS: ASCORBIC ACID 1,000 MG TAB PO SCH (10:48)
[2020-08-12] MEDS: ENOXAPARIN SOD 80 MG/0.8ML SYRINGE SC SCH ×2 (10:48→20:49)
[2020-08-12] MEDS: CHOLECALCIFEROL (VITD3) 2,000 UNIT CAP PO SCH (10:48)
--- NOTE | 2020-08-12 11:31 | NUR ---
MD Dr Meyer to see patient. Orders received to decrease peep to 5 and plan for CPAP tomorrow 08/13/20.
--- NOTE | 2020-08-12 11:44 | NUR ---
Respiratory note: VENT CHANGES MADE PER DECREASED PEEP TO 5. CPAP IN THE AM.
[2020-08-12] MEDS: fentaNYL Drip 2500mCg/250mlNS 250 ML IV SCH ×2 (12:45→15:27)
--- NOTE | 2020-08-12 14:50 | NUR ---
Notified Dr Meyer of worsening subcutaneous emphysema to patient's neck since AM assessment. Orders received for CXR to check for pneumothorax.
--- NOTE | 2020-08-12 18:57 | NUR ---
END OF SHIFT Patient remains intubated and sedated, no s/s of distress noted. Vent settings now AC 14 TV 500 fiO2 30% P5 with O2 sats 92%. Patient on Versed 7mg/hr, Fentanyl 100mcg/hr and Propofol 10mcg/kg/hr. Levophed has remained off since 1200. Tube feeds placed on hold at 1800 due to residuals >60ml. Taylor drained 1600ml of light kandy urine throughout shift. Report to be given to Lacie BORJA RN.
--- NOTE | 2020-08-12 19:30 | NUR ---
Opening Shift Note Assumed care of patient intubated and sedated with current vent settings: A/C rate 14, tidal vol- 500, Fio2 30%, peep 5, Spo2 92%tolerating well, de [place] santos cath draining to gravity with yellow clear urine, current drips: versed 7mg, propofol 10mcg, fentanyl 100mcg, No S/S of respiratory distress or pain noted. Bed low to floor and call light within reach will continue to monitor for changes Q1hr and PRN.
[2020-08-13] VITALS (92 sets, daily range): BP systolic 82–152; BP diastolic 49–85
--- NOTE | 2020-08-13 01:00 | NUR ---
Patient given bed bath with CHG wipes, warm soapy wash cloths used to clean face and clyde area, complete linen and gown change provided to patient. Skin re-assessed at this time, no change noted.
--- NOTE | 2020-08-13 01:27 | NUR ---
Patients NGT re-assessed and noted to have 60 ml of residual still present, continue to hold feeding at this time, will continue to monitor.
[2020-08-13] MEDS: PROPOFOL 100 ML IV SCH ×7 (01:43→22:53)
[2020-08-13] MEDS: NOREPINEPHRINE 8 MG/250ML KIT 250 ML IV SCH (02:36)
[2020-08-13] MEDS: MIDAZOLAM DRIP 50 mg/50mL 50 ML IV SCH ×7 (03:35→19:15)
[2020-08-13 05:06] LABS: BUN/Creatinine Ratio 47.1; Calcium 8.3 mg/dL (8.5-10.1); Potassium 3.7 mmol/L (3.5-5.1)
[2020-08-13 05:14] LABS: Basophils # (auto) 0.1 10 ^3/uL (0-0.2); Basophils % (auto) 0.6 % (0.0-2.0); Eosinophils # (auto) 0.2 10 ^3/uL (0-0.8); Eosinophils % (auto) 1.9 % (0.0-7.0); Hematocrit 39.8 % (41.0-53.0); Hemoglobin 13.2 g/dL (13.5-17.5); Lymphocytes # (auto) 1.1 10 ^3/uL (0.4-5.4); Lymphocytes % (auto) 10.2 % (10.0-50.0); Mean Corpuscular Hemoglobin 28.1 pg (28.0-32.0); Mean Corpuscular Hgb Conc. 33.1 g/dL (32.0-36.0); Mean Corpuscular Volume 84.8 fL (80.0-100.0); Monocytes # (auto) 0.9 10 ^3/uL (0-1.3); Monocytes % (auto) 8.6 % (0.0-12.0); Neutrophils # (auto) 8.4 10 ^3/uL (1.6-8.6); Neutrophils % (auto) 78.7 % (37.0-80.0); Platelet Count (auto) 297 10^3/uL (140-450); White Blood Cell 10.7 10^3/uL (4.4-10.8)
--- NOTE | 2020-08-13 06:00 | NUR ---
Patients NGT re-assessed and noted to have 60 ml of residual still present, continue to hold feeding at this time, will continue to monitor.
--- NOTE | 2020-08-13 07:21 | NUR ---
End shift note Report given and care endorsed to AM nurse.
--- NOTE | 2020-08-13 07:40 | NUR ---
ASSESS- PT. LYING IN BED ON VENT SIZE # 8.0 ET, 26 AT THE LIP, AC-14, TV-500, PEEP-5, FIO2-30%. LUNGS CLEAR GIN. INSPIRATORY AND EXPIRATORY, DIMINISHED BASES GIN. PT. HAS GAG/COUGH REFLEX. ON VERSED GTT. AT 7 MG./HR., FENTANYL GTT. AT 100 MCG. RESPONDS TO PAINFUL/TACTILE STIMULI. NO MOVEMENT OF EXTREMITIES SEEN. DOES NOT FOLLOW ANY COMMANDS. LEVOPHED GTT. AT 2MCG. A-LINE RT. FEMORAL INTACT WITH GOOD WAVEFORM. MID-LINE RT. UPPER ARM INTACT. MID-LINE CHERYLE INTACT. NGT. RT. NARE INTACT, TF OFF DUE TO HIGH RESIDUAL. ABD. SOFT, FLAT. BOWEL SOUNDS HYPOACTIVE ALL FOUR QUADRANTS. F/C TO GRAVITY WITH CLEAR LT. STACEY URINE. SKIN INTACT. OPTIFOAM TO SACRUM PREVENTATIVE. RECTAL PROBE IN PLACE. RADIAL PULSES STRONG, PALPABLE GIN. DORSALIS PEDAL PULSES STRONG, PALPABLE GIN. NO EDEMA. SCD LT. LEG. ON AIRBORNE PRECAUTIONS FOR COVID-19 POSITIVE.
[2020-08-13] MEDS: cefTRIAXone 1GM/50ML D5W 50 ML IV SCH (09:00)
[2020-08-13] MEDS: BUDESONIDE (INHALATION) 0.5 MG/2 ML NEB NEB SCH ×2 (09:20→22:00)
[2020-08-13] MEDS: ALBUTEROL SULF 2.5 MG/0.5ML(0.5%) NEB SOLN NEB SCH ×3 (09:20→22:00)
[2020-08-13] MEDS: AZITHROMYCIN 500MG/ 250ML 250 ML IV SCH (09:58)
[2020-08-13] MEDS: ENOXAPARIN SOD 80 MG/0.8ML SYRINGE SC SCH ×2 (09:58→22:11)
[2020-08-13] MEDS: FUROSEMIDE 20 MG/2 ML VIAL IV SCH (09:58)
[2020-08-13] MEDS: CHOLECALCIFEROL (VITD3) 2,000 UNIT CAP PO SCH (09:59)
[2020-08-13] MEDS: ZINC SULFATE 220mg CAP or TAB PO SCH (09:59)
[2020-08-13] MEDS: ASCORBIC ACID 1,000 MG TAB PO SCH (09:59)
[2020-08-13] MEDS: DexAMETHasone SOD PHOS 10MG/1ML VIAL INJ IV SCH (10:00)
--- NOTE | 2020-08-13 10:12 | NUR ---
DR. MURRAY Provider/Hospitalist at bedside. GAVE UPDATE ON PT. NEW ORDERS RECEIVED.
--- NOTE | 2020-08-13 12:30 | NUR ---
HAVE BEEN TITRATING PT'S. SEDATION DOWN FOR CPAP TRIAL TODAY ORDERED. PLACED GIN. HAND MITTENS ON PT. PREVIOUSLY TO PREVENT PULLING OF TUBES WHEN PT. AWAKENS.
[2020-08-13] MEDS: fentaNYL Drip 2500mCg/250mlNS 250 ML IV SCH (12:45)
--- NOTE | 2020-08-13 14:00 | NUR ---
FENTANYL GTT. OFF NOW. PT. ON VERSED GTT. ONLY AT 3MG./HR. PT. STARTING TO OPEN EYES, NO TRACKING. COUGHING AT TIMES ON VENT. DOES NOT FOLLOW ANY COMMANDS. NO MOVEMENT OF EXTREMITIES SEEN. GIN. HAND MITTENS REMAIN IN PLACE.
[2020-08-13] MEDS: PANTOPRAZOLE 40 MG/10 ML VIAL INJ IV SCH (14:13)
--- NOTE | 2020-08-13 14:17 | NUR ---
Nutrition Followup Note Wt 73.7kg Pt is covid positive and pt is intubated and sedated with propofl @ 4.935 ml/hr providing 130 kcal from lipids. Pt is with Jevity 1.2 ordered at 70 ml/hr. pt TF held today d/t to high residuals. Pt received 420 ml of TF 08/12 per Rn note. Consider restarting TF when medically feasible. Est Energy needs: 7115-7240 kcals (20-23 kcal/kgBW), Est Protein needs: 66-82 gms/day (0.8-1.0 gm/kgBW). Will continue to monitor and reassess prn. Labs: BUn 24H, Creat 0.51L, Alb 1.9L, Ca 8.3L, Na 134L BM: Pt with no BM noted per Rn note Skin: BS 11 high risk refer to skin care notes for details PES: 1) Increased nutrient needs r/t pt with no PO intake aeb pt in intubated, NPO 2) Altered nutrition related lab values r/t current medical condition aeb eleb RFT, hyperglycemia, hypocalcemia, hypoalbuminemia Comments Will continue to monitor NPO status, skin status, pertinent labs and weight trends. Will f/u in 2-3 days 1) Consider EN support with Jevity 1.2 @ 70 ml/hr goal rate or PN support if GI is not accessible. 2) Gradually advance diet when medically feasible, as tolerated and per MD approval 4) If albumin continues trending down with improved RFT, consider Prostat 1 pkt BID 5) Continue current plan of care
--- NOTE | 2020-08-13 15:45 | NUR ---
AUSCULTATED GOOD PLACEMENT WITH NGT. NO EMESIS. TF HAS BEEN OFF FOR POSSIBLE CPAP TRIAL TODAY. PT. HAS NOT WOKEN UP ENOUGH YET. TF WAS OFF THIS AM DUE TO HIGH RESIDUAL. RESTARTED TF AT 10 CC/HR.
--- NOTE | 2020-08-13 16:08 | NUR ---
A-LINE SBP 90'S-100'S. TITRATED LEVOPHED GTT. OFF. MONITORING BP.
[2020-08-14] VITALS (97 sets, daily range): BP systolic 69–152; BP diastolic 37–80
--- NOTE | 2020-08-14 01:30 | NUR ---
Patient started to cough, desaturated to 86%, Suctioning provided but was not effective, RT also at bed side, Started Fentanyl and Versed per protocol.
[2020-08-14] MEDS: PROPOFOL 100 ML IV SCH ×6 (02:57→23:17)
--- NOTE | 2020-08-14 03:08 | NUR ---
Patient is resting, O2 96% Adjusted sedation per protocol.
[2020-08-14 04:48] LABS: BUN/Creatinine Ratio 39.7; Calcium 8.2 mg/dL (8.5-10.1); Potassium 3.6 mmol/L (3.5-5.1)
--- NOTE | 2020-08-14 07:40 | NUR ---
ASSESS- PT. LYING IN BED ON VENT SIZE #8.0 ET, 26 AT LIP, AC-14, TV-500, PEEP-5, FIO2 50%. LUNGS CLEAR GIN. INSPIRATORY AND EXPIRATORY, DIMINISHED BASES GIN. PT. HAS GAG/COUGH REFLEX. RESPONDS TO PAINFUL/TACTILE STIMULI. NO MOVEMENT OF EXTREMITIES SEEN. DOES NOT FOLLOW ANY COMMANDS. ON VERSED GTT. AT 4MG./HR. AND FENTANYL GTT. AT 25 MCG. GIN. MID -LINES CHERYLE AND MILDRED INTACT WITH DSG. D/I. NGT RT. NARE INTACT. ABD. SOFT, FLAT. BOWEL SOUNDS HYPOACTIVE ALL FOUR QUADRANTS. F/C TO GRAVITY WITH CLEAR DK. STACEY URINE. A-LINE RT. FEMORAL INTACT WITH GOOD WAVEFORM. RADIAL PULSES STRONG, PALPABLE GIN. DORSALIS PEDAL PULSES STRONG, PALPABLE GIN. LT. LE WITH SCD. SKIN INTACT, OPTIFOAM TO SACRUM PREVENTATIVE. RECTAL PROBE IN PLACE. GIN. HAND MITTENS IN PLACE TO PREVENT PULLING OF TUBES. PT. ON ISOLATION FOR COVID-19.
[2020-08-14] MEDS: NOREPINEPHRINE 8 MG/250ML KIT 250 ML IV SCH (08:45)
[2020-08-14] MEDS: cefTRIAXone 1GM/50ML D5W 50 ML IV SCH (08:45)
[2020-08-14] MEDS: AZITHROMYCIN 500MG/ 250ML 250 ML IV SCH (09:36)
[2020-08-14] MEDS: PANTOPRAZOLE 40 MG/10 ML VIAL INJ IV SCH (09:36)
[2020-08-14] MEDS: DexAMETHasone SOD PHOS 10MG/1ML VIAL INJ IV SCH (09:37)
[2020-08-14] MEDS: FUROSEMIDE 20 MG/2 ML VIAL IV SCH (09:38)
[2020-08-14] MEDS: ZINC SULFATE 220mg CAP or TAB PO SCH (09:39)
[2020-08-14] MEDS: ASCORBIC ACID 1,000 MG TAB PO SCH (09:39)
[2020-08-14] MEDS: CHOLECALCIFEROL (VITD3) 2,000 UNIT CAP PO SCH (09:39)
[2020-08-14] MEDS: ENOXAPARIN SOD 80 MG/0.8ML SYRINGE SC SCH ×2 (09:41→20:29)
--- NOTE | 2020-08-14 10:11 | NUR ---
DR. MURRAY Provider/Hospitalist at bedside. GAVE UPDATE ON PT. NEW ORDERS RECEIVED.
[2020-08-14] MEDS: BUDESONIDE (INHALATION) 0.5 MG/2 ML NEB NEB SCH ×2 (11:09→19:33)
[2020-08-14] MEDS: ALBUTEROL SULF 2.5 MG/0.5ML(0.5%) NEB SOLN NEB SCH ×3 (11:10→19:32)
[2020-08-14] MEDS: MIDAZOLAM DRIP 50 mg/50mL 50 ML IV SCH ×2 (11:48→15:04)
[2020-08-14] MEDS: fentaNYL Drip 2500mCg/250mlNS 250 ML IV SCH (11:49)
--- NOTE | 2020-08-14 12:40 | NUR ---
A-LINE SBP DECREASED TO 75. RESTARTED LEVOPHED GTT. AT 2 MCG. VIA MID-LINE MILDRED. MONITORING BP.
--- NOTE | 2020-08-14 13:15 | NUR ---
WOUND CARE NOTE: WOUND CARE TEAM IS MONITORING PATIENT FOR SKIN INTEGRITY. PATIENT REMAINS INTUBATED, IN AIRBORNE ISOLATION FOR COVID 19. CURRENT CHINO SCORE IS 12. PER BEDSIDE NURSE, PATIENT CONTINUES TO BE WOUND FREE AT THIS TIME. SKIN/WOUND CARE PLAN UPDATED. RECOMMEND: CONTINUATION WITH ALL WOUND CARE ORDERS PREVIOUSLY PRESCRIBED BY MD. WOUND CARE TEAM WILL CONTINUE TO MONITOR.
--- NOTE | 2020-08-14 13:43 | NUR ---
A-LINE SBP 84. INCREASED LEVOPHED GTT. TO 4 MCG. MONITORING BP.
[2020-08-14] MEDS: METOCLOPRAMIDE HCL 5MG/ml INJ 2ml VIAL IV SCH ×2 (13:48→20:29)
--- NOTE | 2020-08-14 14:30 | NUR ---
SBP INCREASED TO THE 90'S-100'S. CONTINUING TO MONITOR BP.
--- NOTE | 2020-08-14 19:00 | NUR ---
Opening Shift Note Assumed care of intubated and sedated patient on current vent settings- A/C 14, TV-500, Fio2 45%, peep, 5 with Spo2 at 94% tolerating vent well. Taylor cath draining to gravity with dark kandy urine, current drips- versed 4,mg, fentanyl 25mcg, and levophed 4 mcg, no s/s of distress noted, bed low to floor and call light within reach, will continue to monitor for changes Q1hr and PRN.
--- NOTE | 2020-08-14 21:47 | NUR ---
Family updated on pt status Family of IRENETUAN updated on patient's status and condition with password verification. All questions and concerns addressed. Patients granddaughter verbalized understanding.
[2020-08-15] VITALS (66 sets, daily range): BP systolic 92–133; BP diastolic 52–77
--- NOTE | 2020-08-15 01:00 | NUR ---
AM Care Note Patient given bed bath using CHG wipes, warm soapy wash cloth used to clean face and pericare, linen and gown changed, skin reassessed at this time and no changes were noted, continue to monitor.
[2020-08-15] MEDS: MIDAZOLAM DRIP 50 mg/50mL 50 ML IV SCH ×6 (01:42→19:46)
[2020-08-15] MEDS: PROPOFOL 100 ML IV SCH ×6 (03:21→23:41)
[2020-08-15 04:55] LABS: Basophils # (auto) 0.1 10 ^3/uL (0-0.2); Basophils % (auto) 0.6 % (0.0-2.0); Eosinophils # (auto) 0.2 10 ^3/uL (0-0.8); Eosinophils % (auto) 1.6 % (0.0-7.0); Hematocrit 36.9 % (41.0-53.0); Hemoglobin 12.6 g/dL (13.5-17.5); Lymphocytes # (auto) 1.1 10 ^3/uL (0.4-5.4); Lymphocytes % (auto) 9.6 % (10.0-50.0); Mean Corpuscular Hgb Conc. 34.2 g/dL (32.0-36.0); Mean Corpuscular Volume 84.8 fL (80.0-100.0); Monocytes # (auto) 0.9 10 ^3/uL (0-1.3); Monocytes % (auto) 7.7 % (0.0-12.0); Neutrophils # (auto) 9.2 10 ^3/uL (1.6-8.6); Neutrophils % (auto) 80.5 % (37.0-80.0); Platelet Count (auto) 299 10^3/uL (140-450); Red Blood Cells 4.36 10^6/uL (4.5-5.90); White Blood Cell 11.4 10^3/uL (4.4-10.8)
[2020-08-15 05:06] LABS: Potassium 3.2 mmol/L (3.5-5.1)
[2020-08-15 05:14] LABS: BUN/Creatinine Ratio 43.6; Calcium 8.2 mg/dL (8.5-10.1)
[2020-08-15] MEDS: ALBUTEROL SULF 2.5 MG/0.5ML(0.5%) NEB SOLN NEB SCH ×2 (06:00→18:45)
[2020-08-15] MEDS: METOCLOPRAMIDE HCL 5MG/ml INJ 2ml VIAL IV SCH ×3 (06:26→20:19)
[2020-08-15] MEDS: NOREPINEPHRINE 8 MG/250ML KIT 250 ML IV SCH (06:27)
--- NOTE | 2020-08-15 07:09 | NUR ---
End shift note Report given and care endorsed to Am nurse.
[2020-08-15] MEDS: BUDESONIDE (INHALATION) 0.5 MG/2 ML NEB NEB SCH ×2 (07:37→18:45)
[2020-08-15] MEDS: cefTRIAXone 1GM/50ML D5W 50 ML IV SCH (08:19)
[2020-08-15] MEDS: DexAMETHasone SOD PHOS 10MG/1ML VIAL INJ IV SCH (09:13)
[2020-08-15] MEDS: ZINC SULFATE 220mg CAP or TAB PO SCH (09:13)
[2020-08-15] MEDS: ASCORBIC ACID 1,000 MG TAB PO SCH (09:13)
[2020-08-15] MEDS: PANTOPRAZOLE 40 MG/10 ML VIAL INJ IV SCH (09:13)
[2020-08-15] MEDS: CHOLECALCIFEROL (VITD3) 2,000 UNIT CAP PO SCH (09:14)
[2020-08-15] MEDS ORDERED: POTASSIUM CHLORIDE 80 MEQ, LIDOCAINE 1% (LOCAL ANESTH.) 6 ML in SODIUM CHL 0.9% 500 ML IV ONE (10:00)
[2020-08-15] MEDS: AZITHROMYCIN 500MG/ 250ML 250 ML IV SCH (10:00)
[2020-08-15] MEDS: FUROSEMIDE 20 MG/2 ML VIAL IV SCH (10:00)
[2020-08-15] MEDS: fentaNYL Drip 2500mCg/250mlNS 250 ML IV SCH (12:45)
--- NOTE | 2020-08-15 19:45 | NUR ---
PT NOT TOLERATING CPAP PT THRASHING ARMS UP AND DOWN. HR 136, RESP 32. STARTED PATIENT BACK ON FENTANYL GTT @ 25 MCG. RT AT BEDSIDE SWITCHING PT BACK TO AC MODE ON VENTILATOR FROM CPAP TRIAL.
--- NOTE | 2020-08-15 19:45 | NUR ---
OPENING SHIFT NOTE RECEIVED REPORT FROM DAY SHIFT RN. PT IS CURRENTLY ON CPAP TRIAL RATE 12/5, FIO2 35%. PT APPEARS ANXIOUS AND IS MOVING HIS ARMS WITH FACIAL GRIMACE. PATIENT UPDATED ON POC AND NODDED WHEN THIS RN EXPLAINED POC. HR 130, BP 115/75, RESP 28, O2 SAT 92%. PT VENT TUBE IS 8.0/25 @ LIP. RIGHT NARE NG TUBE THAT IS SECURE AT 60 CM. PT HAS RIGHT FEMORAL A-LINE, MILDRED MIDLINE, CHERYLE MIDLINE, LAC 18G, AND RAC 18G IV ACCESS. ALL LINES ARE FREE OF KINKS, PATENT AND FLUSH WELL. LUNGS SOUNDS DIMINISHED IN BILATERAL LOWER BASES. CREPITUS FELT ON PALPATION TO BILATERAL UPPER CHEST REGIONS. BOWEL SOUNDS HYPO ACTIVE AND UNKNOWN LBM ACCORDING TO DAY SHIFT REPORT. PATIENT HAS A LEGGETT THAT IS SECURE TO RIGHT THIGH, FREE OF KINKS, HANGING TO GRAVITY WITH YELLOW CLEAR UOP. PT SKIN IS INTACT WITH VITILIGO TO BILATERAL LOWER EXTREMITIES. OPTIFOAM ON SACRUM FOR PREVENTATIVE PRESSURE MEASURES. PT TURNED TO LEFT SIDE FOR COMFORT WITH PILLOW SUPPORT. BED IN LOWEST LOCKED POSITION AND SAFETY PRECAUTIONS IN PLACE. .
[2020-08-16] VITALS (95 sets, daily range): BP systolic 71–130; BP diastolic 45–76
[2020-08-16] MEDS: MIDAZOLAM DRIP 50 mg/50mL 50 ML IV SCH ×5 (01:00→21:00)
--- NOTE | 2020-08-16 02:00 | NUR ---
ROUNDING PT RESTING WITH EYES CLOSED. RESPERATIONS EVEN AND UNLABORED. NO SIGNS OF DISTRESS. BP 122/ 63, HR 106, RESP 17.
[2020-08-16] MEDS: PROPOFOL 100 ML IV SCH ×5 (03:45→20:01)
[2020-08-16] MEDS: METOCLOPRAMIDE HCL 5MG/ml INJ 2ml VIAL IV SCH ×3 (04:49→22:00)
--- NOTE | 2020-08-16 06:20 | NUR ---
BLOOD PRESSURE A-LINE SBP 84. TITRATED FENTANYL DOWN 25 MCG. WILL REASSESS PT BLOOD PRESSURE.
[2020-08-16 06:22] LABS: Basophils # (auto) 0 10 ^3/uL (0-0.2); Basophils % (auto) 0.4 % (0.0-2.0); Eosinophils # (auto) 0.1 10 ^3/uL (0-0.8); Eosinophils % (auto) 0.8 % (0.0-7.0); Hematocrit 39.2 % (41.0-53.0); Hemoglobin 13.5 g/dL (13.5-17.5); Lymphocytes # (auto) 0.9 10 ^3/uL (0.4-5.4); Lymphocytes % (auto) 8.8 % (10.0-50.0); Mean Corpuscular Hemoglobin 29.1 pg (28.0-32.0); Mean Corpuscular Hgb Conc. 34.4 g/dL (32.0-36.0); Mean Corpuscular Volume 84.6 fL (80.0-100.0); Monocytes # (auto) 0.7 10 ^3/uL (0-1.3); Monocytes % (auto) 6.7 % (0.0-12.0); Neutrophils # (auto) 8.3 10 ^3/uL (1.6-8.6); Neutrophils % (auto) 83.3 % (37.0-80.0); Nucleated Red Blood Cells % 0.2 %; Platelet Count (auto) 284 10^3/uL (140-450); Red Blood Cells 4.64 10^6/uL (4.5-5.90); Red Cell Distribution Width 14.3 % (11.8-14.3)
[2020-08-16 06:37] LABS: Calcium 8.8 mg/dL (8.5-10.1); Potassium 4.1 mmol/L (3.5-5.1)
--- NOTE | 2020-08-16 07:14 | NUR ---
CLOSING NOTE PT ON VENTILATOR. RUNNING LEVO @4, PRECEDEX @ 0.2 AND FENTANYL @ 75. BLOOD PRESSURE 105/57, HR 79. NO SIGNS OF DISTRESS NOTED. REPORT GIVEN TO DAY SHIFT RN.
[2020-08-16] MEDS: ALBUTEROL SULF 2.5 MG/0.5ML(0.5%) NEB SOLN NEB SCH ×3 (07:23→22:00)
[2020-08-16] MEDS: BUDESONIDE (INHALATION) 0.5 MG/2 ML NEB NEB SCH ×2 (07:23→22:00)
[2020-08-16] MEDS: fentaNYL Drip 2500mCg/250mlNS 250 ML IV SCH ×2 (07:48→10:35)
[2020-08-16] MEDS: NOREPINEPHRINE 8 MG/250ML KIT 250 ML IV SCH (08:45)
[2020-08-16] MEDS: cefTRIAXone 1GM/50ML D5W 50 ML IV SCH (09:13)
[2020-08-16] MEDS: CHOLECALCIFEROL (VITD3) 2,000 UNIT CAP PO SCH (10:00)
[2020-08-16] MEDS: DexAMETHasone SOD PHOS 10MG/1ML VIAL INJ IV SCH (10:00)
[2020-08-16] MEDS: ASCORBIC ACID 1,000 MG TAB PO SCH (10:00)
[2020-08-16] MEDS: FUROSEMIDE 20 MG/2 ML VIAL IV SCH (10:21)
[2020-08-16] MEDS: PANTOPRAZOLE 40 MG/10 ML VIAL INJ IV SCH (10:25)
[2020-08-16] MEDS: AZITHROMYCIN 500MG/ 250ML 250 ML IV SCH (10:26)
[2020-08-16] MEDS: ZINC SULFATE 220mg CAP or TAB PO SCH (10:28)
--- NOTE | 2020-08-16 10:50 | NUR ---
PT ON CPAP AT THIS TIME PS 7, PEEP5, 45% FIO2. PT TOLERATING WELL. RN AWARE OF CHANGE.
--- NOTE | 2020-08-16 12:20 | NUR ---
lung mechanics on cpap ps 7, peep5 nif -25 vc 1000ML rsbi 62 positive leak
--- NOTE | 2020-08-16 12:35 | NUR ---
Patient extubated by RT Extubation order received by Dr. MURRAY, RT at bedside. Patient extubated with no problems, patient tolerated well. Patient placed on45 % cool mist mask. Sats prior to extubation 97%, following extubation 96%. Continue to monitor.
--- NOTE | 2020-08-16 12:35 | NUR ---
pt extubated at this time and placed on 40% cool mist aerosol. spo2 95%. no stridor. rn aware.
--- NOTE | 2020-08-16 14:52 | NUR ---
Nutrition Followup Note Wt 75.0 kg Pt is covid positive. Pt is s/p extubation today 08/16 per RT note. Pt is with Jevity 1.2 at 70 ml/hr, pt last received TF 08/14 per Rn note. Consider a swallow eval for pt and advance diet as tolerated. Est Energy needs: 3864-1332 kcals (20-23 kcal/kgBW), Est Protein needs: 66-82 gms/day (0.8-1.0 gm/kgBW). Will continue to monitor and reassess prn. Labs: BUN 29H, Creat 0.58L, Alb 1.9L BM: Pt with no BM noted per Rn note Skin: BS 14 mod risk refer to skin care notes for details PES: Partially resolved, pt extubated 1) Increased nutrient needs r/t pt with no PO intake aeb pt in intubated, NPO 2) Altered nutrition related lab values r/t current medical condition aeb eleb RFT, hyperglycemia, hypocalcemia, hypoalbuminemia Comments Will continue to monitor NPO status, skin status, pertinent labs and weight trends. Will f/u in 2-3 days 1) Consider EN support with Jevity 1.2 @ 70 ml/hr goal rate or PN support if GI is not accessible. 2) Gradually advance diet when medically feasible, as tolerated and per MD approval 4) If albumin continues trending down with improved RFT, consider Prostat 1 pkt BID 5) Continue current plan of care
--- NOTE | 2020-08-16 19:00 | NUR ---
RECEIVED REPORT FROM DAY RN. 2000 PT. IN BED AWAKE, FOLLOWS SIMPLE COMMANDS, ON CONTINUOUS 02 VIA MIST MASK @ 40% FIO2, SATS 95-96%, COARSE RHONCHI BILAT ON AUSCULTATION, IV SITES INTACT AND NO SIGNS OF IV INFILTRATION, NGT TO RT NARE INTACT AND CLAMPED OFF. LEGGETT IN AND DRAINING WELL.
--- NOTE | 2020-08-16 22:45 | NUR ---
DAUGHTER CALLED WITH THE RIGHT PASSWORD, UPDATES GIVEN.
[2020-08-17] VITALS (28 sets, daily range): BP systolic 74–133; BP diastolic 53–79
[2020-08-17] MEDS: PROPOFOL 100 ML IV SCH ×2 (00:05→04:09)
[2020-08-17] MEDS: MIDAZOLAM DRIP 50 mg/50mL 50 ML IV SCH (02:00)
--- NOTE | 2020-08-17 03:00 | NUR ---
AM CARE DONE, ORAL CARE DONE AND REPOSITIONED, PT. MORE AWAKE AND CAN CARRY A CONVERSATION, ORIENTED TO PLACE AND PERSONS WITH CONFUSION TO TIME, REORIENTATION DONE.
[2020-08-17 04:54] LABS: Basophils # (auto) 0 10 ^3/uL (0-0.2); Basophils % (auto) 0.3 % (0.0-2.0); Eosinophils # (auto) 0 10 ^3/uL (0-0.8); Eosinophils % (auto) 0.2 % (0.0-7.0); Hematocrit 41.9 % (41.0-53.0); Hemoglobin 14.3 g/dL (13.5-17.5); Lymphocytes # (auto) 0.9 10 ^3/uL (0.4-5.4); Lymphocytes % (auto) 8.9 % (10.0-50.0); Mean Corpuscular Hemoglobin 28.7 pg (28.0-32.0); Mean Corpuscular Volume 84.3 fL (80.0-100.0); Monocytes # (auto) 0.6 10 ^3/uL (0-1.3); Monocytes % (auto) 6.6 % (0.0-12.0); Neutrophils # (auto) 8.3 10 ^3/uL (1.6-8.6); Platelet Count (auto) 341 10^3/uL (140-450); Red Blood Cells 4.98 10^6/uL (4.5-5.90); Red Cell Distribution Width 14.4 % (11.8-14.3); White Blood Cell 9.8 10^3/uL (4.4-10.8)
[2020-08-17 05:23] LABS: Potassium 3.6 mmol/L (3.5-5.1)
[2020-08-17 05:30] LABS: BUN/Creatinine Ratio 58.8; Calcium 9.1 mg/dL (8.5-10.1)
[2020-08-17] MEDS: ALBUTEROL SULF 2.5 MG/0.5ML(0.5%) NEB SOLN NEB SCH ×3 (06:00→23:00)
[2020-08-17] MEDS: METOCLOPRAMIDE HCL 5MG/ml INJ 2ml VIAL IV SCH ×3 (06:09→21:39)
--- NOTE | 2020-08-17 06:35 | NUR ---
REPORT GIVEN TO DAY RN.
--- NOTE | 2020-08-17 06:40 | NUR ---
PT ASSESSED. NO S/S OF RESPIRATORY DISTRESS. PT REMAINS ON 4L NC HR 111 RR 22 POX 93% BP 108/69 TEMP 99.7 WILL CONT TO MONITOR.
--- NOTE | 2020-08-17 07:00 | NUR ---
LEVO DECREASED TO 2 MCG/MIN
[2020-08-17] MEDS: cefTRIAXone 1GM/50ML D5W 50 ML IV SCH (08:26)
[2020-08-17] MEDS: DexAMETHasone SOD PHOS 10MG/1ML VIAL INJ IV SCH (09:55)
[2020-08-17] MEDS: FUROSEMIDE 20 MG/2 ML VIAL IV SCH (09:56)
[2020-08-17] MEDS: AZITHROMYCIN 500MG/ 250ML 250 ML IV SCH (09:57)
[2020-08-17] MEDS: PANTOPRAZOLE 40 MG/10 ML VIAL INJ IV SCH (09:57)
[2020-08-17] MEDS: CHOLECALCIFEROL (VITD3) 2,000 UNIT CAP PO SCH (09:58)
[2020-08-17] MEDS: ZINC SULFATE 220mg CAP or TAB PO SCH (09:58)
[2020-08-17] MEDS: ASCORBIC ACID 1,000 MG TAB PO SCH (09:58)
[2020-08-17] MEDS: BUDESONIDE (INHALATION) 0.5 MG/2 ML NEB NEB SCH ×2 (10:00→23:00)
--- NOTE | 2020-08-17 13:00 | NUR ---
Assumed care of patient Received report from VIET Jarvis. Upon entering room, found patient laying in bed with eyes open. No distress noted or stated. On oxygen at 4 lpm via nasal cannula. Discussed POC with patient. Bed is low, locked with 2x side rails up. Call light is within reach. No distress noted upon exiting room.
--- NOTE | 2020-08-17 16:05 | NUR ---
SWALLOW EVALUATED. PATIENT HAS NATURAL TEETH. PATIENT ALOC BUT ABLE TO FOLLOW COMMANDS. PATIENT ABLE TO TOLERATE PUREE DIET TEXTURE WITH THIN LIQUIDS WITH NO OVERT SIGNS OR SYMPTOMS OF ASPIRATION. NURSING NOTIFIED.
--- NOTE | 2020-08-17 19:10 | NUR ---
Opening Shift Note Assumed care of patient, awake and alert. Pt language is garbled and hard to understand. No S/S of distress/SOB or pain. Safety measures in place, bed in lowest locked position, bed rails raised x2 call light within reach. Taylor draining light kandy urine with sediment to gravity. All needs addressed at this time. Instructed on POC and to call for assist PRN, will continue to monitor for changes Q1hr and PRN.
--- NOTE | 2020-08-17 19:45 | NUR ---
DURING PATIENT ROUNDS, PT FOUND WITH NG TUBE REMOVED. THIS RN ASKED THE PT WHAT HAPPENED, PT STATES THAT THE TUBE JUST CAME OUT HE WAS REACHING FOR HIS WATER CUP. NO TRAUMA OR S/S OF DISTRESS OR PAIN NOTED AT THIS TIME. WILL CONTINUE TO MONITOR.
[2020-08-18 05:43] VITALS: BP 99/66
[2020-08-18] MEDS: METOCLOPRAMIDE HCL 5MG/ml INJ 2ml VIAL IV SCH ×3 (06:00→21:27)
[2020-08-18 06:03] LABS: Basophils # (auto) 0.1 10 ^3/uL (0-0.2); Basophils % (auto) 0.6 % (0.0-2.0); Eosinophils # (auto) 0.1 10 ^3/uL (0-0.8); Eosinophils % (auto) 0.9 % (0.0-7.0); Hematocrit 40.5 % (41.0-53.0); Hemoglobin 13.8 g/dL (13.5-17.5); Lymphocytes # (auto) 0.9 10 ^3/uL (0.4-5.4); Lymphocytes % (auto) 10.1 % (10.0-50.0); Mean Corpuscular Hemoglobin 28.8 pg (28.0-32.0); Mean Corpuscular Volume 84.5 fL (80.0-100.0); Monocytes # (auto) 0.6 10 ^3/uL (0-1.3); Monocytes % (auto) 7.2 % (0.0-12.0); Neutrophils % (auto) 81.2 % (37.0-80.0); Nucleated Red Blood Cells % 0.1 %; Platelet Count (auto) 284 10^3/uL (140-450); Red Blood Cells 4.79 10^6/uL (4.5-5.90); Red Cell Distribution Width 14.3 % (11.8-14.3); White Blood Cell 8.6 10^3/uL (4.4-10.8)
[2020-08-18 06:14] LABS: BUN/Creatinine Ratio 64.1; Calcium 8.3 mg/dL (8.5-10.1); Potassium 3.5 mmol/L (3.5-5.1)
[2020-08-18] MEDS: BUDESONIDE (INHALATION) 0.5 MG/2 ML NEB NEB SCH ×2 (07:37→22:00)
[2020-08-18] MEDS: ALBUTEROL SULF 2.5 MG/0.5ML(0.5%) NEB SOLN NEB SCH ×3 (07:37→22:00)
[2020-08-18 09:19] VITALS: BP 88/58
[2020-08-18] MEDS: FUROSEMIDE 20 MG/2 ML VIAL IV SCH (10:00)
[2020-08-18] MEDS: ASCORBIC ACID 1,000 MG TAB PO SCH (10:01)
[2020-08-18] MEDS: ZINC SULFATE 220mg CAP or TAB PO SCH (10:01)
[2020-08-18] MEDS: PANTOPRAZOLE 40 MG/10 ML VIAL INJ IV SCH (10:01)
[2020-08-18] MEDS: CHOLECALCIFEROL (VITD3) 2,000 UNIT CAP PO SCH (10:01)
[2020-08-18] MEDS: DexAMETHasone SOD PHOS 10MG/1ML VIAL INJ IV SCH (10:02)
[2020-08-18 10:07] VITALS: BP 95/58
[2020-08-18] MEDS: cefTRIAXone 1GM/50ML D5W 50 ML IV SCH (10:07)
--- NOTE | 2020-08-18 11:21 | NUR ---
Nutrition Followup Note Wt 66.2kg kg Pt is covid positive. Pt is s/p NGT removed, pt reports it fell out this morning. Pt is s/p swallow eval by ST, pt diet advanced to pureed with one intake of 100% today per Rn nutrition note. Will continue to monitor po intake and tolerance of diet. Est Energy needs: 1121-0710 kcals (20-23 kcal/kgBW), Est Protein needs: 66-82 gms/day (0.8-1.0 gm/kgBW). Will continue to monitor and reassess prn. Labs: Na 134L, BUN 41H, Creat 0.64L, Alb 1.9L, Ca 8.3L BM: Pt with no BM noted per Rn note Skin: BS 14 mod risk refer to skin care notes for details PES: Resolved, diet advanced to pureed1) Increased nutrient needs r/t pt with no PO intake aeb pt in intubated, NPO 2) Altered nutrition related lab values r/t current medical condition aeb eleb RFT, hyperglycemia, hypocalcemia, hypoalbuminemia Comments Will continue to monitor po intake, skin status, pertinent labs and weight trends. Will f/u in 3-5 days 1) Pt diet now pureed, pt to have >75% po intake 2) If albumin continues trending down with improved RFT, consider Prostat 1 pkt BID 3) Continue current plan of care
[2020-08-18] MEDS: AZITHROMYCIN 500MG/ 250ML 250 ML IV SCH (11:24)
--- NOTE | 2020-08-18 11:30 | NUR ---
Dr. Meyer at bedside Discussing POC with patient. MD aware of low blood pressure. Patient is asymptomatic at this time. Received new orders. Read back to verify.
[2020-08-18 12:51] VITALS: BP 91/54
[2020-08-18 16:43] VITALS: BP 104/60
--- NOTE | 2020-08-18 19:25 | NUR ---
Opening Shift Note Assumed care of patient, awake and alert. No S/S of distress/SOB or pain. Safety measures in place, bed in lowest locked position, bed rails raised x2, call light within reach. Taylor draining light kandy colored urine to gravity. Pt receiving 2L O2 via nasal cannula saturating at 96%. All needs addressed at this time. Instructed on POC and to call for assist PRN, will continue to monitor for changes Q1hr and PRN.
[2020-08-18 22:00] VITALS: BP 94/48
[2020-08-19 05:00] VITALS: BP 95/53
[2020-08-19] MEDS: METOCLOPRAMIDE HCL 5MG/ml INJ 2ml VIAL IV SCH ×3 (05:51→22:00)
[2020-08-19] MEDS: ALBUTEROL SULF 2.5 MG/0.5ML(0.5%) NEB SOLN NEB SCH ×2 (06:00→14:00)
[2020-08-19 08:55] VITALS: BP 119/54
[2020-08-19 09:10] LABS: Hematocrit 40.2 % (41.0-53.0); Hemoglobin 13.8 g/dL (13.5-17.5); Mean Corpuscular Hemoglobin 29.1 pg (28.0-32.0); Mean Corpuscular Hgb Conc. 34.4 g/dL (32.0-36.0); Mean Corpuscular Volume 84.7 fL (80.0-100.0); Platelet Count (auto) 276 10^3/uL (140-450); Red Blood Cells 4.74 10^6/uL (4.5-5.90); Red Cell Distribution Width 14.6 % (11.8-14.3); White Blood Cell 7.9 10^3/uL (4.4-10.8)
[2020-08-19 09:29] LABS: Basophils % (manual) 0 (0.0-2.0); Blast Cells 0; Metamyelocytes % 0; Myelocytes % 0; Promyelocytes % 0; Reactive Lymphocytes 0
[2020-08-19 09:30] LABS: Calcium 8.4 mg/dL (8.5-10.1); Potassium 3.2 mmol/L (3.5-5.1)
[2020-08-19 09:33] LABS: BUN/Creatinine Ratio 33.9
[2020-08-19] MEDS: BUDESONIDE (INHALATION) 0.5 MG/2 ML NEB NEB SCH (10:00)
[2020-08-19] MEDS: ZINC SULFATE 220mg CAP or TAB PO SCH (10:01)
[2020-08-19] MEDS: ASCORBIC ACID 1,000 MG TAB PO SCH (10:01)
[2020-08-19] MEDS: FUROSEMIDE 20 MG/2 ML VIAL IV SCH (10:01)
[2020-08-19] MEDS: PANTOPRAZOLE 40 MG/10 ML VIAL INJ IV SCH (10:02)
[2020-08-19] MEDS: CHOLECALCIFEROL (VITD3) 2,000 UNIT CAP PO SCH (10:02)
[2020-08-19] MEDS: POTASSIUM CHL 20MEQ/100ML 100 ML IV SCH ×2 (10:09→12:30)
[2020-08-19 10:53] LABS: Band Neutrophils % (manual) 1; Eosinophils % (manual) 6 (0-7); Lymphocytes % (manual) 8 (10.0-50.0); Monocytes % (manual) 4 (0-12)
[2020-08-19 12:52] VITALS: BP 95/57
[2020-08-19 12:54] VITALS: BP 150/90
[2020-08-19 17:15] VITALS: BP 105/57
--- NOTE | 2020-08-19 18:00 | NUR ---
Patient AOx4, vital signs stable. Patient was able to eat 100% of breakfast and lunch with minimal assist. Potassium was low, replaced two bags of IV potassium. patient tolerated it well. Discontinued Taylor at 1515 per MD verbal order at bedside. patient has not have any urination yet, will continue to monitor. Patient's granddaughter, Shashi called at 1220, verified patient's password and updated her on the plans of care. patient resting in bed, call light within reach, bed in low position. will continue to monitor patient.
--- NOTE | 2020-08-19 19:32 | NUR ---
Report given to wheelchair rental clerk RNMaximo to continue monitor patient's urine output since patient has not have urination after de los santos removed at 1515.
--- NOTE | 2020-08-19 20:37 | NUR ---
PT voided via urinal 300ml emptied. Clear, yellow, no odor.
--- NOTE | 2020-08-19 22:30 | NUR ---
Removed Left and Right 20g AC IV due to no longer being used . Pressure dressing applied. Site is clean.
[2020-08-19] MEDS: BUDESONIDE (INHALATION) 180 MCG IH IN SCH (22:37)
[2020-08-19 22:47] VITALS: BP 112/64
--- NOTE | 2020-08-20 02:00 | NUR ---
Emptied urinal 500ml clear yellow urine
[2020-08-20 05:00] VITALS: BP 101/54
--- NOTE | 2020-08-20 05:00 | NUR ---
Titrated O2 to 1 LPM. Pt is laying down in bed with HOB elevated. Attempted to ween pt off of O2. On RA, pt O2 sat at 87%. Pt does not report SOB or difficulty breathing. Placed Pt on 1LPM, O2 sat currently maintaining 90%.
[2020-08-20] MEDS: METOCLOPRAMIDE HCL 5MG/ml INJ 2ml VIAL IV SCH ×3 (05:36→21:32)
[2020-08-20 09:00] VITALS: BP 107/55
[2020-08-20] MEDS: BUDESONIDE (INHALATION) 180 MCG IH IN SCH ×2 (10:00→20:43)
[2020-08-20] MEDS: CHOLECALCIFEROL (VITD3) 2,000 UNIT CAP PO SCH (10:20)
[2020-08-20] MEDS: ASCORBIC ACID 1,000 MG TAB PO SCH (10:20)
[2020-08-20] MEDS: ZINC SULFATE 220mg CAP or TAB PO SCH (10:20)
[2020-08-20] MEDS: FUROSEMIDE 20 MG/2 ML VIAL IV SCH (10:21)
[2020-08-20 10:47] LABS: Basophils # (auto) 0.1 10 ^3/uL (0-0.2); Basophils % (auto) 0.7 % (0.0-2.0); Eosinophils # (auto) 0.2 10 ^3/uL (0-0.8); Eosinophils % (auto) 1.5 % (0.0-7.0); Hematocrit 40.9 % (41.0-53.0); Hemoglobin 14.1 g/dL (13.5-17.5); Lymphocytes # (auto) 1.6 10 ^3/uL (0.4-5.4); Lymphocytes % (auto) 13.9 % (10.0-50.0); Mean Corpuscular Hemoglobin 29.1 pg (28.0-32.0); Mean Corpuscular Hgb Conc. 34.6 g/dL (32.0-36.0); Mean Corpuscular Volume 84.2 fL (80.0-100.0); Monocytes # (auto) 0.7 10 ^3/uL (0-1.3); Monocytes % (auto) 5.7 % (0.0-12.0); Neutrophils # (auto) 9.3 10 ^3/uL (1.6-8.6); Neutrophils % (auto) 78.2 % (37.0-80.0); Platelet Count (auto) 297 10^3/uL (140-450); Red Blood Cells 4.86 10^6/uL (4.5-5.90); Red Cell Distribution Width 14.6 % (11.8-14.3); White Blood Cell 11.8 10^3/uL (4.4-10.8)
[2020-08-20] MEDS: ENOXAPARIN SOD 40 MG/0.4 ML SYRINGE SC SCH (12:08)
[2020-08-20 13:05] VITALS: BP 114/68
[2020-08-20 13:10] LABS: Potassium 4.1 mmol/L (3.5-5.1)
[2020-08-20 13:16] LABS: BUN/Creatinine Ratio 22.2; Calcium 8.6 mg/dL (8.5-10.1)
--- NOTE | 2020-08-20 15:08 | NUR ---
Pt was able to sit at the edge of the bed with modA from supine to sit. Pt was able to complete a few exercises 10 to 15 reps for bilat UE and LE's. Pt attempted to do sit to stand however, pt demo'd SOB and weakness and was not able too. Pt was placed back to bed in supine and left call light within reach. Addendum: 08/20/20 at 1511 by Angela Guerrero PT Amended: Links added.
[2020-08-20 17:09] VITALS: BP 102/54
[2020-08-20] MEDS: ALBUTEROL SULF HFA 90MCG INH 200DOSE IN PRN (20:43)
[2020-08-20 22:00] VITALS: BP 103/57
--- NOTE | 2020-08-20 23:30 | NUR ---
Family called, password provided. Update family on POC
[2020-08-21 05:00] VITALS: BP 111/55
--- NOTE | 2020-08-21 05:03 | NUR ---
Pt not tolerating RA or 1L O2. Pt currently on 3L NC saturation 95%
[2020-08-21] MEDS: METOCLOPRAMIDE HCL 5MG/ml INJ 2ml VIAL IV SCH ×3 (05:36→21:59)
[2020-08-21 09:00] VITALS: BP 109/63
[2020-08-21] MEDS: ASCORBIC ACID 1,000 MG TAB PO SCH (09:52)
[2020-08-21] MEDS: ENOXAPARIN SOD 40 MG/0.4 ML SYRINGE SC SCH (09:52)
[2020-08-21] MEDS: FUROSEMIDE 20 MG/2 ML VIAL IV SCH (09:52)
[2020-08-21] MEDS: ZINC SULFATE 220mg CAP or TAB PO SCH (09:52)
[2020-08-21] MEDS: CHOLECALCIFEROL (VITD3) 2,000 UNIT CAP PO SCH (09:52)
--- NOTE | 2020-08-21 11:12 | NUR ---
Nutrition Followup Note Wt 67.2 kg Pt is covid positive. Pt is continued with pureed diet with a good appetite aeb pt with >75% po intake avg x 2 days per Rn note. Est Energy needs: 1724-8266 kcals (20-23 kcal/kgBW), Est Protein needs: 66-82 gms/day (0.8-1.0 gm/kgBW). Will continue to monitor and reassess prn. Labs: Na 135L, GLUC 125H, Alb 1.9L BM: Pt with 1 BM noted 08/21 per Rn note Skin: BS 18 mod risk refer to skin care notes for details PES: Resolved, diet advanced to pureed1) Increased nutrient needs r/t pt with no PO intake aeb pt in intubated, NPO 2) Altered nutrition related lab values r/t current medical condition aeb eleb RFT, hyperglycemia, hypocalcemia, hypoalbuminemia Comments Will continue to monitor po intake, skin status, pertinent labs and weight trends. Will f/u in 3-5 days 1) Pt diet now pureed, pt to have >75% po intake 2) If albumin continues trending down with improved RFT, consider Prostat 1 pkt BID 3) Continue current plan of care
--- NOTE | 2020-08-21 12:00 | NUR ---
Ana M SPARKS AT BEDSIDE ROUNDING. PATIENT RESTING IN BED LOW FOWLERS. NO S/S OF DISTRESS.
--- NOTE | 2020-08-21 12:30 | NUR ---
WOUND CARE NOTE: PATIENT BEING MONITORED FOR SKIN INTEGRITY D/T INTUBATION STATUS. SINCE LAST EXAM, PATIENT HAS BEEN EXTUBATED, IS NOW ON COVID WEST UNIT. PATIENT CONTINUES TO BE IN AIRBORNE ISOLATION FOR COVID 19. CURRENT CHINO SCORE IS 18. HE NOW ABLE TO SELF TURN/REPOSITION SELF. SKIN/WOUND CARE PLAN UPDATED. NO FURTHER WOUND CARE MONITORING NEEDED AT THIS TIME.
--- NOTE | 2020-08-21 12:32 | NUR ---
PT AT BEDSIDE. Addendum: 08/21/20 at 1233 by TRESSA HECK RN RN PHYSICAL THERAPY AT BEDSIDE WORKING WITH PATIENT.
[2020-08-21 13:00] VITALS: BP 96/52
--- NOTE | 2020-08-21 14:27 | NUR ---
Pt worked on exercises in bed while lying in supine. Pt was able to complete x 15 reps for bilat UE's and LE's. Pt margarita fair to sitting at the edge of the bed for approx 8 min. Pt started to experience SOB and O2 was increased to 5L then to 6L. Pt was placed back to bed along with call light within reach. Pt's nurse made aware of SOB while working with PT and how delivery of O2 had to be increased during treatment Addendum: 08/21/20 at 1430 by Angela Guerrero PT Amended: Links added.
[2020-08-21 17:00] VITALS: BP 110/60
[2020-08-21] MEDS: BUDESONIDE (INHALATION) 180 MCG IH IN SCH (19:25)
[2020-08-21 22:56] VITALS: BP 112/65
[2020-08-22] MEDS: ALBUTEROL SULF HFA 90MCG INH 200DOSE IN PRN ×2 (02:26→20:52)
[2020-08-22] MEDS: METOCLOPRAMIDE HCL 5MG/ml INJ 2ml VIAL IV SCH ×3 (05:37→21:06)
[2020-08-22 05:53] VITALS: BP 125/61
--- NOTE | 2020-08-22 07:30 | NUR ---
Pt no complaints throughout the night. Hand off to VIET Braswell. Pt is asleep in bed with 3L N/C. bed lowest position. Side rails up x2. No SOB or distress noted.
[2020-08-22] MEDS: ENOXAPARIN SOD 40 MG/0.4 ML SYRINGE SC SCH (09:02)
[2020-08-22] MEDS: ZINC SULFATE 220mg CAP or TAB PO SCH (09:02)
[2020-08-22] MEDS: ASCORBIC ACID 1,000 MG TAB PO SCH (09:02)
[2020-08-22] MEDS: FUROSEMIDE 20 MG/2 ML VIAL IV SCH (09:02)
[2020-08-22] MEDS: CHOLECALCIFEROL (VITD3) 2,000 UNIT CAP PO SCH (09:03)
[2020-08-22 09:59] VITALS: BP 108/59
[2020-08-22] MEDS: BUDESONIDE (INHALATION) 180 MCG IH IN SCH ×2 (10:00→20:52)
[2020-08-22 10:23] LABS: Basophils # (auto) 0.1 10 ^3/uL (0-0.2); Basophils % (auto) 1.2 % (0.0-2.0); Eosinophils # (auto) 0.3 10 ^3/uL (0-0.8); Eosinophils % (auto) 4.1 % (0.0-7.0); Hematocrit 37.5 % (41.0-53.0); Hemoglobin 13.1 g/dL (13.5-17.5); Lymphocytes # (auto) 1.1 10 ^3/uL (0.4-5.4); Lymphocytes % (auto) 14.5 % (10.0-50.0); Mean Corpuscular Hemoglobin 29.6 pg (28.0-32.0); Mean Corpuscular Hgb Conc. 34.8 g/dL (32.0-36.0); Mean Corpuscular Volume 85.1 fL (80.0-100.0); Monocytes # (auto) 0.5 10 ^3/uL (0-1.3); Monocytes % (auto) 6.9 % (0.0-12.0); Neutrophils # (auto) 5.4 10 ^3/uL (1.6-8.6); Neutrophils % (auto) 73.3 % (37.0-80.0); Platelet Count (auto) 260 10^3/uL (140-450); Red Blood Cells 4.41 10^6/uL (4.5-5.90); Red Cell Distribution Width 14.8 % (11.8-14.3); White Blood Cell 7.3 10^3/uL (4.4-10.8)
[2020-08-22 13:00] VITALS: BP 102/56
--- NOTE | 2020-08-22 13:02 | NUR ---
Patient on 2 L of NC, o2 sat 93-%.
[2020-08-22 16:43] VITALS: BP 107/61
--- NOTE | 2020-08-22 19:30 | NUR ---
Opening Shift Note Assumed care of patient, awake and alert, oriented x 4, follows direction. on oxygen at 3L via NC with even and unlabored respirations. Patient was able to properly return demonstration using the IS with inspire volume of 100ml, encourage patient to continue to use, patient verbalized understanding. No S/S of distress/SOB or pain. patient using urinal independently. patient is able to turn independently in bed. Bed in lowest locked position with side rails up x 2 and call light within reach. Instructed on POC and to call for assist PRN, will continue to monitor for changes Q1hr and PRN.
[2020-08-22 22:00] VITALS: BP 9/64
[2020-08-23 05:32] VITALS: BP 91/61
[2020-08-23] MEDS: METOCLOPRAMIDE HCL 5MG/ml INJ 2ml VIAL IV SCH ×2 (06:08→14:00)
--- NOTE | 2020-08-23 06:56 | NUR ---
Closing Note status unchanged. patient resting in bed laying on left side with oxygen on at 3L via NC, no s/s of distress or SOB. Bed in lowest locked position with side rails up x 2 and call light within reach.
--- NOTE | 2020-08-23 07:10 | NUR ---
Endorsed care to dayshift VIET Braswell
[2020-08-23 08:00] VITALS: BP 100/58
[2020-08-23 08:02] LABS: Basophils # (auto) 0.1 10 ^3/uL (0-0.2); Basophils % (auto) 0.9 % (0.0-2.0); Eosinophils # (auto) 0.3 10 ^3/uL (0-0.8); Eosinophils % (auto) 3.1 % (0.0-7.0); Hemoglobin 12.6 g/dL (13.5-17.5); Lymphocytes # (auto) 1.2 10 ^3/uL (0.4-5.4); Lymphocytes % (auto) 13.2 % (10.0-50.0); Mean Corpuscular Hemoglobin 28.9 pg (28.0-32.0); Mean Corpuscular Hgb Conc. 33.9 g/dL (32.0-36.0); Mean Corpuscular Volume 85.1 fL (80.0-100.0); Monocytes # (auto) 0.7 10 ^3/uL (0-1.3); Monocytes % (auto) 7.4 % (0.0-12.0); Neutrophils # (auto) 6.9 10 ^3/uL (1.6-8.6); Neutrophils % (auto) 75.4 % (37.0-80.0); Platelet Count (auto) 266 10^3/uL (140-450); Red Blood Cells 4.35 10^6/uL (4.5-5.90); Red Cell Distribution Width 15.2 % (11.8-14.3); White Blood Cell 9.1 10^3/uL (4.4-10.8)
[2020-08-23 08:18] LABS: Potassium 3.9 mmol/L (3.5-5.1)
[2020-08-23 08:39] LABS: Calcium 8.7 mg/dL (8.5-10.1)
[2020-08-23] MEDS: ENOXAPARIN SOD 40 MG/0.4 ML SYRINGE SC SCH (09:03)
[2020-08-23] MEDS: ASCORBIC ACID 1,000 MG TAB PO SCH (09:03)
[2020-08-23] MEDS: CHOLECALCIFEROL (VITD3) 2,000 UNIT CAP PO SCH (09:03)
[2020-08-23] MEDS: ZINC SULFATE 220mg CAP or TAB PO SCH (09:04)
[2020-08-23] MEDS ORDERED: FUROSEMIDE 40 MG/4 ML VIAL IV SCH (10:00)
--- NOTE | 2020-08-23 11:00 | NUR ---
Oxygen room air 90 %.
[2020-08-23] MEDS ORDERED: ASCO10003 PO (11:20)
[2020-08-23] MEDS ORDERED: CHOL1CAP47 PO (11:21)
--- NOTE | 2020-08-23 11:29 | NUR ---
Received a call from [facility] stated patient does not qualify for due to patient does not have insurance. Dr. Mitch najera.
--- NOTE | 2020-08-23 11:33 | NUR ---
Spoke to Dr. Meyer aware of patient does not have insurance. SS consult cancelled.
[2020-08-23 12:47] VITALS: BP 105/62
[2020-08-23 12:55] VITALS: BP 100/58
--- NOTE | 2020-08-23 15:15 | NUR ---
Discharge instructions given as ordered. Encourage to follow up with PMD (Folllow up with [facility] clinic in Sep 06 at 11.30 AM. Patient has no insurance, pt should be referred to [facility] office 8 AM-5PM #[phone] Address : [address] [place] [address] [address], [place], [address]) as instructed. All questions and concerns addressed. Patient verbalized understanding. Medication reconciliation form completed and copy given to patient. IV removed with catheter intact, pressure dressing applied. Telemetry unit returned to ICU. Patient taken to vehicle via wheelchair with all personal belongings, accompanied by staff and family member. No distress noted at time of departure.
== END 2020-08-23 15:15 | disposition home or self-care (01) | DRG 870 ==
LOC: ER 07:37 → EDBD 07:37 → TELE 11:13 → ICU WEST 08-07 15:34 → WEST WING 08-17 10:52 → TELE-WESTW 08-17 12:23
PROVIDERS: ADMIT Nurse Practitioner Acute Care; ATTEND Internal Medicine Pulmonary Disease
PROC: 04HY32Z Insertion of Monitoring Device into Lower Artery, Percutaneous Approach (ICD-10-PCS; principal; 2020-08-03)
PROC: 5A1955Z Respiratory Ventilation, Greater than 96 Consecutive Hours (ICD-10-PCS; 2020-08-03)
PROC: 0BH17EZ Insertion of Endotracheal Airway into Trachea, Via Natural or Artificial Opening (ICD-10-PCS; 2020-08-03)
PROC: XW033E5 Introduction of Remdesivir Anti-infective into Peripheral Vein, Percutaneous Approach, New Technology Group 5 (ICD-10-PCS; 2020-08-04)
PROC: XW13325 Transfusion of Convalescent Plasma (Nonautologous) into Peripheral Vein, Percutaneous Approach, New Technology Group 5 (ICD-10-PCS; 2020-08-07)
DX: A41.89 Other specified sepsis (principal); E43 Unspecified severe protein-calorie malnutrition; J12.89 Other viral pneumonia; J96.01 Acute respiratory failure with hypoxia; R65.21 Severe sepsis with septic shock; U07.1 COVID-19; D68.59 Other primary thrombophilia; N17.9 Acute kidney failure, unspecified; J98.2 Interstitial emphysema; E87.5 Hyperkalemia
CPT/HCPCS: 36415; 36600; 71045; 80048; 80053; 81001; 82728; 82805; 82962; 83036; 83605; 83735; 83880; 84132; 84484; 85007; 85025; 85027; 85379; 86141; 86850; 86900; 86901; 87040; 87081; 87426; 87804; 92610; 93005; 94002; 94003; 94640; 94660; 97110; 97530; 99291; C9113; G0378; J0330; J0696; J1100; J1815; J2001; J2250; J2704; J3480; J7060